=== PATIENT | male | born 1960 | race Caucasian/White ===

== ENCOUNTER → 2019-06-28 13:20 | Outpatient (BNVA) | payer MEDICARE, MEDICAID, SELFPAY | PROVIDERS: PCP Nurse Practitioner Family; Visit Provider Anesthesiology | DX: G89.29 Other chronic pain (principal); M54.5 Low back pain; M25.551 Pain in right hip; M25.552 Pain in left hip; M25.511 Pain in right shoulder; M25.512 Pain in left shoulder; F17.210 Nicotine dependence, cigarettes, uncomplicated; Z79.891 Long term (current) use of opiate analgesic | CPT/HCPCS: 99214 ==

== ENCOUNTER → 2019-08-12 11:53 | Outpatient (BNVA) | payer MEDICARE, MEDICAID, SELFPAY | PROVIDERS: PCP Nurse Practitioner Family; Visit Provider Nurse Practitioner | DX: F33.2 Major depressive disorder, recurrent severe without psychotic features (principal); F45.0 Somatization disorder | CPT/HCPCS: 90832; 99213 ==

== ENCOUNTER → 2019-08-24 13:20 | Outpatient (BNVA) | payer MEDICARE, MEDICAID, SELFPAY | PROVIDERS: PCP Nurse Practitioner Family; Visit Provider Nurse Practitioner | DX: M54.5 Low back pain (principal); M54.2 Cervicalgia; F17.210 Nicotine dependence, cigarettes, uncomplicated; Z79.891 Long term (current) use of opiate analgesic; G43.711 Chronic migraine without aura, intractable, with status migrainosus | CPT/HCPCS: 99213; 99214 ==

== ENCOUNTER → 2019-11-15 07:41 | Outpatient (BNVA) | payer MEDICARE, MEDICAID, SELFPAY | PROVIDERS: PCP Nurse Practitioner Family; Visit Provider Nurse Practitioner | DX: F33.2 Major depressive disorder, recurrent severe without psychotic features (principal); F45.0 Somatization disorder | CPT/HCPCS: 99213 ==

== ENCOUNTER → 2019-12-14 14:15 | Outpatient (BNVA) | payer MEDICARE, MEDICAID, SELFPAY | PROVIDERS: PCP Nurse Practitioner Family; Visit Provider Anesthesiology | DX: G89.29 Other chronic pain (principal); M54.5 Low back pain; M25.551 Pain in right hip; M25.552 Pain in left hip; M54.2 Cervicalgia; M25.511 Pain in right shoulder; M25.512 Pain in left shoulder; F17.210 Nicotine dependence, cigarettes, uncomplicated; Z79.891 Long term (current) use of opiate analgesic; Z71.6 Tobacco abuse counseling | CPT/HCPCS: 99214 ==

== ENCOUNTER → 2020-02-08 09:20 | Outpatient (BNVA) | payer MEDICARE, MEDICAID, SELFPAY | PROVIDERS: PCP Nurse Practitioner Family; Visit Provider Nurse Practitioner | DX: F33.2 Major depressive disorder, recurrent severe without psychotic features (principal); F45.0 Somatization disorder | CPT/HCPCS: 99213 ==

== ENCOUNTER → 2020-02-29 13:00 | Outpatient (BNVA) | payer MEDICARE, MEDICAID, SELFPAY | PROVIDERS: PCP Nurse Practitioner Family; Visit Provider Anesthesiology | DX: G89.29 Other chronic pain (principal); M54.5 Low back pain; M54.2 Cervicalgia; F17.210 Nicotine dependence, cigarettes, uncomplicated; Z79.891 Long term (current) use of opiate analgesic | CPT/HCPCS: 99213; 99214 ==

== ENCOUNTER 2020-03-29 20:00 | Outpatient (CLI) | payer MEDICARE, MEDICAID, SELFPAY | END 2020-03-29 20:01 | disposition home or self-care (01) | LOC: SLEEP 03-30 09:28 | PROVIDERS: PCP Nurse Practitioner Family; Visit Provider Specialist | DX: G47.33 Obstructive sleep apnea (adult) (pediatric) (principal) | CPT/HCPCS: 95811 ==

== ENCOUNTER 2020-04-18 14:59 | Outpatient (CLI) | payer MEDICARE, MEDICAID, SELFPAY ==
--- NOTE | 2020-04-18 15:35 | US_ITS ---
WS: [id number] ULTRASOUND SOFT TISSUES bilateral neck ultrasound. HISTORY: SOFT TISSUE MASS COMPARISON: None available. TECHNIQUE: 2-D and color Doppler imaging is submitted. Ultrasound to the neck as directed by the patient to the palpable areas. There are benign-appearing l ymph nodes without increased vascularity. Fatty hilum is present and these lymph nodes are not enlarg ed. Vascularity is to the central hilum. Largest lymph node measures 1.3 cm in diameter. US/US soft tissue head neck [id number] IMPRESSION: Bilateral neck lymph nodes. Lymph nodes do not appear to be pathologic at this time.
== END 2020-04-18 15:00 | disposition home or self-care (01) ==
PROVIDERS: PCP Nurse Practitioner Family; Visit Provider Nurse Practitioner Family
DX: M79.9 Soft tissue disorder, unspecified (principal)
CPT/HCPCS: 76536

== ENCOUNTER → 2020-05-01 13:59 | Outpatient (BNVA) | payer MEDICARE, MEDICAID, SELFPAY | PROVIDERS: PCP Nurse Practitioner Family; Visit Provider Anesthesiology | DX: G89.29 Other chronic pain (principal); M54.5 Low back pain; M54.2 Cervicalgia; M25.511 Pain in right shoulder; M25.512 Pain in left shoulder; M25.551 Pain in right hip; M25.552 Pain in left hip; F17.210 Nicotine dependence, cigarettes, uncomplicated; Z79.891 Long term (current) use of opiate analgesic | CPT/HCPCS: 99214 ==

== ENCOUNTER → 2020-05-11 09:00 | Outpatient (BNVA) | payer MEDICARE, MEDICAID, SELFPAY | PROVIDERS: PCP Nurse Practitioner Family; Visit Provider Nurse Practitioner | DX: F33.2 Major depressive disorder, recurrent severe without psychotic features (principal); F45.0 Somatization disorder | CPT/HCPCS: 99213 ==

== ENCOUNTER → 2020-07-04 14:18 | Outpatient (BNVA) | payer MEDICARE, MEDICAID, SELFPAY | PROVIDERS: PCP Nurse Practitioner Family; Visit Provider Anesthesiology | DX: G89.29 Other chronic pain (principal); M54.5 Low back pain; M54.2 Cervicalgia; M79.604 Pain in right leg; M79.605 Pain in left leg; M25.511 Pain in right shoulder; M25.512 Pain in left shoulder; F17.210 Nicotine dependence, cigarettes, uncomplicated; Z79.891 Long term (current) use of opiate analgesic | CPT/HCPCS: 99213 ==

== ENCOUNTER 2020-07-21 06:12 | Emergency (ER) | payer MEDICARE, MEDICAID, SELFPAY ==
[2020-07-21 06:12] VITALS: BP 116/69; PULSE 74; RESP 16; TEMP 36.6; O2SAT 98; BMI 21.7
--- NOTE | 2020-07-21 06:37 | ED_ITS ---
HPI - Nausea/Vomiting/Diarrhea General: Chief complaint: Nausea/Vomiting/Diarrhea Stated complaint: nausea x 1 month, generalized weakness Time Seen by Provider: 07/21/20 06:16 History of Present Illness: HPI Narrative: The patient is a 59-year-old male with past medical history chronic back pain who comes to the ER complaining of 1 month of nausea and epigastric pain. He says over the past 2 weeks he has been able to eat less and less and not even sweet things taste good to him. He says he eats and then vomits and is feeling progressively weaker. He denies diarrhea and says he suffers from constipation when he does go. He is a chronic back pain patient on opiates. He says he has not drink anything in a day and is nauseous and is not thirsty. Then asks for juice immediately after. MD elicited complaint: nausea and vomiting Associated nausea: Yes Associated abdominal pain: Yes Location of pain: Epigastric Severity: moderate Quality: cramping Exacerbating factors: none Relieving factors: none Associated symtoms: Reports nausea; Denies anxiety, change in vision, chest pain, dizziness, fatigue, headache(s) or palpitations Review of Systems General: Reports: 10 or more systems reviewed and unremarkable except in HPI and below Const: Denies: fatigue Eyes: Denies: change in vision, blurry vision or eye redness ENMT: Denies: throat pain, swelling of lips/tongue, ear or mastoid pain or nasal congestion Card: Denies: chest pain, palpitations, irregular heart rhythm, edema, dyspnea on exertion or orthopnea Resp: Denies: dyspnea, productive cough or non-productive cough GI: Reports: abdominal pain, nausea and vomiting : Denies: flank pain, urinary frequency or urinary urgency Musc: Denies: neck pain, back pain, extremity pain, joint pain, joint redness, limited range of motion or muscle weakness Skin/Breast: Denies: rash, pruritus, erythema, skin pain or skin tenderness Neuro: Denies: headache(s), numbness in extremities, weakness in extremities, sensory changes, difficulty walking, dizziness, confusion or Slurred speech present Psych: Denies: anxiety or depression Endo: Denies: polyuria All/Imm: Denies: urticaria, throat swelling or tongue swelling PFSH ED PFSH: Medical History (Updated 07/21/20 @ 10:59 by Kun Szymanski MD) Back pain, lumbosacral Bilateral hip pain Bilateral shoulder pain Chronic neck pain Current every day smoker Encounter for long-term opiate analgesic use Major depressive disorder, recurrent severe without psychotic features Opioid contract exists Somatization disorder Surgical History H/O hemorrhoidectomy Family History Other CAD (coronary artery disease) Cancer Dementia Stroke Social History Smoking and tobacco status: heavy tobacco smoker cigarettes Alcohol intake: never History of recent travel: No Physical Exam Const: COMMON NORMALS: no acute distress, average body habitus, patient oriented x3, no limitations, healthy appearing, alert and well nourished GENERAL APPEARANCE: cooperative, comfortable, well kempt and well developed ORIENTATION/CONSCIOUSNESS: Yes awake, Yes oriented to person, Yes oriented to place and Yes oriented to time HENMT: COMMON NORMALS: normocephalic, external ears normal and Normal external nose present HEAD & SCALP: normal to inspection and normocephalic NOSE: Normal external nose present EXTERNAL EAR: Yes external ears normal MOUTH: Normal oral and palatal mucosa present THROAT: posterior oropharynx normal Eye: COMMON NORMALS: Equal, round and reactive pupils present and EOMs intact bilaterally GENERAL EYE: appearance normal, both eyes and all related structures PUPIL: Yes Equal, round and reactive pupils present Neck/C-Spine: COMMON NORMALS: full ROM, no lymphadenopathy, no meningeal signs and no JVD GENERAL: Yes normal visual inspection Lymph: LYMPHATIC: no lymphadenopathy noted Chest: COMMONS NORMALS: normal inspection of the chest and normal palpation of entire chest wall Resp: COMMON NORMALS: normal respiratory effort, No retractions, No use of accessory muscles, clear to auscultation bilaterally and percussion normal EFFORT & INSPECTION: Yes able to speak in complete sentences AUSCULTATION: clear to auscultation bilaterally PERCUSSION: percussion normal Cardio: COMMON NORMALS: no JVD, regular rate, regular rhythm, S1 normal heart sound present, S2 normal heart sound present and Peripheral pulses 2+ throughout RATE: regular rate RHYTHM: regular rhythm HEART SOUNDS: S1 normal heart sound present and S2 normal heart sound present PERIPHERAL PULSES: Peripheral pulses 2+ throughout GI: COMMON NORMALS: Normal to inspection, nondistended, normoactive bowel sounds present, Soft to palpation, non-tender and no masses INSPECTION: Yes normal to inspection PALPATION: Yes Soft to palpation : COMMON NORMALS: Yes no CVA tenderness BLADDER/KIDNEY EXAM: Yes no CVA tenderness Back/Pelvis: COMMON NORMALS: no CVA tenderness, thoracic and lumbar spine normal to inspection, no thoracic nor lumbar tenderness and thoraco-lumbar ROM normal Extremity: COMMON NORMALS: normal to inspection, full ROM, capillary refill normal, no joint enlargement and no pedal edema GENERAL: Yes normal exam except as noted Neuro: COMMON NORMALS: patient oriented x3, CN's II-XII intact bilaterally, moves all extremities, no focal motor deficits, no sensory deficits noted and gait normal SENSORIUM/ORIENTATION: Yes alert, Yes oriented to person, Yes oriented to place and Yes oriented to time MENINGEAL SIGNS: Yes no meningeal signs Psych: COMMON NORMALS: mental status grossly normal, Normal thought process present, cooperative, normal affect and speech normal APPEARANCE: Yes well kempt ATTITUDE: Yes calm SPEECH: Yes normal speech THOUGHT PROCESS: Normal thought process present Skin: COMMON NORMALS: no rashes or lesions noted GENERAL SKIN EXAM: no rashes or lesions noted Course Vital Signs: Vital signs: Vital Signs Temperature 97.9 F 07/21/20 06:12 Pulse Rate 80 07/21/20 09:01 Respiratory Rate 16 07/21/20 06:48 Blood Pressure 112/65 07/21/20 09:01 Pulse Oximetry 97 07/21/20 09:01 MDM - Nausea/Vomiting/Diarrhea MDM Narrative: Medical decision making narrative: The patient had elevated liver enzymes and a CT was performed which showed incidentally metastatic lesions to the liver. This is a new diagnosis today. Primary cancer not seen in the imaging. Placed case management referral for interventional radiology for biopsy of liver metastases, oncology, and recommended he follow-up with his primary care physician next week to direct care. He understands and is aware that he likely has cancer and early diagnosis and treatment lead to a better prognosis and longer life span and quality of life. He was given fluids and Zofran and has not vomited during his stay. He is also tolerating oral fluids well. He is stable for discharge. Return to the ER with worsening symptoms Lab Data: Labs: Lab Results 07/21/20 07/21/20 07/21/20 Range/Units 06:19 06:19 06:19 WBC 10.0 (4.0-10.0) 10^3/ uL RBC 3.27 L (4.1-5.3) 10^6/u L Hgb 10.6 L (11.7-16.6) g/dL Hct 32.2 L (42.0-52.0) % MCV 98.5 H (80-94) fL MCH 32.4 (28.0-34.0) pg MCHC 32.9 (30.0-36.0) g/dL RDW 15.1 (12.1-15.1) % Plt Count 431 H (130-400) 10^3/c mm MPV 10.1 (7.4-10.4) fL Neut % (Auto) 75.6 % Lymph % (Auto) 15.5 % Maverick % (Auto) 8.1 % Eos % (Auto) 0.1 % Baso % (Auto) 0.3 % Neut # (Auto) 7.56 (1.8-7.7) 10^3/u L Lymph # (Auto) 1.6 (0.8-4.8) 10^3/u L Maverick # (Auto) 0.8 (0.2-0.9) 10^3/u L Eos # (Auto) 0.0 (0.0-0.8) 10^3/u L Baso # (Auto) 0.0 (0.0-0.1) 10^3/u L Nucleated RBC % (a uto) 0 % Nucleated RBCs # 0.0 /100WBC Sodium 135 L (136-145) mmol/L Potassium 4.3 (3.5-5.1) mmol/L Chloride 99 (98-107) mmol/L Carbon Dioxide 24 (22-29) mmol/L Anion Gap 16.3 (5-19) BUN 6 L (8-23) mg/dL Creatinine 0.9 (0.7-1.2) mg/dL GFR Calculation 86.1 L (90-130) mL/min Glucose 103 (65-115) mg/dL Calculated Osmolal ity 278 L (285-295) mOsm/k g Lactate 2.3 H (0.5-2.2) mmol/L Calcium 8.6 (8.5-10.5) mg/dL Total Bilirubin 0.7 (0.15-1.2) mg/dL AST 97 H (0-40) U/L ALT 61 H (0-41) U/L Alkaline Phosphata se 511 H (40-130) IU/L Total Protein 6.4 L (6.6-8.7) g/dL Albumin 3.2 L (3.5-5.2) g/dL Globulin 3.2 (1.3-4.6) g/dL Lipase 33 (13-60) U/L Urine Color (Yellow) Urine Appearance (CLEAR) Urine pH (5-7) Ur Specific Gravit y (1.005-1.030) Urine Protein (Negative) Urine Glucose (UA) (Normal) Urine Ketones (Negative) Urine Blood (Negative) Urine Nitrate (Negative) Urine Bilirubin (Negative) Urine Urobilinogen (Negative) mg/dL Ur Leukocyte Yvette ase (Negative) Urine RBC (0-2) /hpf Urine WBC (0-5) /hpf Ur Squamous Epith Cells (0-5) /hpf Amorphous Sediment Urine Bacteria (NONE) /hpf 07/21/20 Range/Units 06:30 WBC (4.0-10.0) 10^3/ uL RBC (4.1-5.3) 10^6/u L Hgb (11.7-16.6) g/dL Hct (42.0-52.0) % MCV (80-94) fL MCH (28.0-34.0) pg MCHC (30.0-36.0) g/dL RDW (12.1-15.1) % Plt Count (130-400) 10^3/c mm MPV (7.4-10.4) fL Neut % (Auto) % Lymph % (Auto) % Maverick % (Auto) % Eos % (Auto) % Baso % (Auto) % Neut # (Auto) (1.8-7.7) 10^3/u L Lymph # (Auto) (0.8-4.8) 10^3/u L Maverick # (Auto) (0.2-0.9) 10^3/u L Eos # (Auto) (0.0-0.8) 10^3/u L Baso # (Auto) (0.0-0.1) 10^3/u L Nucleated RBC % (a uto) % Nucleated RBCs # /100WBC Sodium (136-145) mmol/L Potassium (3.5-5.1) mmol/L Chloride (98-107) mmol/L Carbon Dioxide (22-29) mmol/L Anion Gap (5-19) BUN (8-23) mg/dL Creatinine (0.7-1.2) mg/dL GFR Calculation (90-130) mL/min Glucose (65-115) mg/dL Calculated Osmolal ity (285-295) mOsm/k g Lactate (0.5-2.2) mmol/L Calcium (8.5-10.5) mg/dL Total Bilirubin (0.15-1.2) mg/dL AST (0-40) U/L ALT (0-41) U/L Alkaline Phosphata se (40-130) IU/L Total Protein (6.6-8.7) g/dL Albumin (3.5-5.2) g/dL Globulin (1.3-4.6) g/dL Lipase (13-60) U/L Urine Color Yellow (Yellow) Urine Appearance Clear (CLEAR) Urine pH 7 (5-7) Ur Specific Gravit y 1.005 (1.005-1.030) Urine Protein Neg (Negative) Urine Glucose (UA) Norm (Normal) Urine Ketones Negative (Negative) Urine Blood Neg (Negative) Urine Nitrate Negative (Negative) Urine Bilirubin Neg (Negative) Urine Urobilinogen 1 H (Negative) mg/dL Ur Leukocyte Yvette ase Trace H (Negative) Urine RBC None (0-2) /hpf Urine WBC 0-4 H (0-5) /hpf Ur Squamous Epith Cells None (0-5) /hpf Amorphous Sediment Not Reportable Urine Bacteria Trace (NONE) /hpf Discharge Plan Discharge Patient Disposition: Home Clinical Impression: Cancer, metastatic to liver Condition: Stable Prescriptions: No Action ketoconazole 200 mg tablet 200 mg PO DAILY RF: 0 duloxetine [Cymbalta] 60 mg capsule,delayed release(DR/EC) 120 mg PO DAILY Qty: 60 RF: 2 diazepam [Valium] 2 mg tablet 2 mg PO DAILY PRN (Reason: anxiety) Qty: 30 RF: 2 multivitamin [Daily Multi-Vitamin] Tablet 1 tab PO QDAY RF: 0 pravastatin 40 mg tablet 40 mg PO QDAY RF: 0 tamsulosin [Flomax] 0.4 mg capsule 0.4 mg PO QDAY RF: 0 hydrocodone-acetaminophen 7.5-325 mg tablet 1 tab PO .5 times a day PRN (Reason: pain) 30 Days Qty: 150 RF: 0 hydrocodone-acetaminophen 7.5-325 mg tablet 1 tab PO .5 times a day PRN (Reason: pain) 30 Days Qty: 150 RF: 0 baclofen 20 mg tablet 20 mg PO QID PRN (Reason: spasms) 30 Days Qty: 120 RF: 1 zonisamide [Zonegran] 100 mg capsule 400 mg PO .AT BEDTIME Qty: 120 RF: 4 Discharge Orders: Discharge ED (Routine); Ordered 07/21/20 Ordered By: Kun Szymanski Referrals: Jeffrey Gibbs NP [Primary Care Provider] - Discharge Diet: Advance as tolerated Discharge Activity: Resume usual activity Patient Instructions: Liver Cancer (ED), Opioid Safety Activity Restrictions/Additional Instructions: You came in for nausea vomiting and weakness. We have given you fluids and Zofran and you are not vomiting and tolerating oral fluids well. Incidentally we have found metastatic lesions in your liver which likely indicate you have a bowel cancer that has spread to the liver but we cannot see the primary lesion in your bowel. I have placed a case management referral to help you get an appointment with interventional radiologist who will do a biopsy next week and also set up care with an oncologist after that. Return to the ER with worsening symptoms. Set up an appointment next week with your primary care physician to discuss this new diagnosis to help manage your care. Coding Level of Care Code ED Firestopper Installer for Xuan Fwd Exam Comprehensive
[2020-07-21 06:41] LABS: Basophils % 0.3 %; Eosinophils % 0.1 %; Hematocrit 32.2 % (42.0-52.0); Hemoglobin 10.6 g/dL (11.7-16.6); Lymphocytes # 1.6 10^3/uL (0.8-4.8); Lymphocytes % 15.5 %; Mean Corpuscular HGB Conc 32.9 g/dL (30.0-36.0); Mean Corpuscular Hemoglobin 32.4 pg (28.0-34.0); Mean Corpuscular Volume 98.5 fL (80-94); Mean Platelet Volume 10.1 fL (7.4-10.4); Monocytes # 0.8 10^3/uL (0.2-0.9); Monocytes % 8.1 %; Neutrophils # 7.56 10^3/uL (1.8-7.7); Neutrophils % 75.6 %; Nucleated Red Blood Cells % 0 %; Platelet Count 431 10^3/cmm (130-400); Red Blood Count 3.27 10^6/uL (4.1-5.3); Red Cell Distribution Width 15.1 % (12.1-15.1)
[2020-07-21] MEDS: sodium chloride 0.9% 1,000 ML 999 ML IV (06:45)
[2020-07-21] MEDS: ondansetron 2 mg/ML SDV 2 mL 4 MG IVP (06:46)
[2020-07-21 06:48] VITALS: BP 127/69; PULSE 82; RESP 16; O2SAT 99
--- NOTE | 2020-07-21 06:51 | CTR_ITS ---
PROCEDURE INFORMATION: Exam: CT Abdomen And Pelvis Without Contrast Exam date and time: 07/21/2020 6:54 AM Age: 59 years old Clinical indication: Nausea; Additional info: Abdominal pain TECHNIQUE: Imaging protocol: Computed tomography of the abdomen and pelvis without contrast. Radiation optimization: All CT scans at this facility use at least one of these dose optimization techniques: automated exposure control; mA and/or kV adjustment per patient size (includes targeted exams where dose is matched to clinical indication); or iterative reconstruction. COMPARISON: CR Hips Bilat 3-4v wwo Pelv [id number] 09/27/2015 5:04 PM RADIATION DOSE METRICS: Total DLP (mGy-cm): 454.82 FINDINGS: Lungs: There is a 0.5 cm nodule in the posterior left lower lobe there is a tiny calcified granuloma in the left lung base. There is a patchy airspace opacity along the lateral aspect of the right lung base. Liver: There is multiple hypodense lesions scattered throughout the liver, the largest measuring 12 cm in the hepatic dome. Gallbladder and bile ducts: Normal. No calcified stones. No ductal dilation. Pancreas: Normal. No ductal dilation. Spleen: There is tiny calcific densities scattered throughout the spleen, likely sequela of previous granulomatous disease. The spleen is otherwise unremarkable. Adrenal glands: Normal. No mass. Kidneys and ureters: Normal. No hydronephrosis. Stomach and bowel: Unremarkable. No obstruction. No mucosal thickening. Appendix: No evidence of appendicitis. Intraperitoneal space: Unremarkable. No free air. No significant fluid collection. Vasculature: [id number]-im-[id number] diffuse atherosclerotic disease is present. Lymph nodes: Unremarkable. No enlarged lymph nodes. Urinary bladder: Unremarkable as visualized. Reproductive: The prostate is enlarged. Bones/joints: Mild S-shaped curvature of the spine is present. Soft tissues: Unremarkable. CT/CT abdomen pelvis wo con [id number] IMPRESSION: 1. Multiple incompletely characterized hepatic lesions, concerning for malignancy. Further evaluation with contrast enhanced MRI is recommended. 2. Left lower lobe pulmonary nodule measuring 0.5 cm. For patients at low risk (minimal or absent history of smoking and of other known risk factors), no routine follow-up is indicated. For patients at high risk (history of smoking or of other known risk factors), consider optional CT Chest at 12 months. (Reference: Mitch) REFERENCES: Mitch Boyer et al. Guidelines for Management of Incidental Pulmonary Nodules Detected on CT Images: From the Fleischner Society 2017. Radiology. 2017;284(1):228-243. Radiation Dose CTDIVOL = (mGy): DLP = 454.82 (mGy-cm)
[2020-07-21 07:02] LABS: Lactate (Lactic Acid level) 2.3 mmol/L (0.5-2.2)
[2020-07-21 07:03] LABS: Alanine Aminotransferase 61 U/L (0-41); Albumin Level 3.2 g/dL (3.5-5.2); Alkaline Phosphatase 511 IU/L (40-130); Anion Gap 16.3 (5-19); Aspartate Amino Transferase 97 U/L (0-40); Blood Urea Nitrogen 6 mg/dL (8-23); Calcium 8.6 mg/dL (8.5-10.5); Carbon Dioxide 24 mmol/L (22-29); Chloride 99 mmol/L (98-107); Globulin 3.2 g/dL (1.3-4.6); Glomerular Filtration Rate 86.1 mL/min (90-130); Glucose 103 mg/dL (65-115); Lipase 33 U/L (13-60); Osmolality Calculated 278 mOsm/kg (285-295); Potassium 4.3 mmol/L (3.5-5.1); Sodium 135 mmol/L (136-145); Total Bilirubin 0.7 mg/dL (0.15-1.2); Total Protein 6.4 g/dL (6.6-8.7)
[2020-07-21 08:23] LABS: Bilirubin Urine Neg (Negative); Blood Urine Neg (Negative); Glucose Urine UA Norm (Normal); Ketones Urine Negative (Negative); Nitrate Urine Negative (Negative); Protein Urine Neg (Negative); Specific Gravity, Urine 1.005 (1.005-1.030); Urine Appearance Clear (CLEAR); Urine Color Yellow (Yellow); pH Urine 7 (5-7)
[2020-07-21 08:24] LABS: Add Urine Culture? No; Add Urine Microscopic? YES; Bacteria Urine TRACE /hpf; Leukocyte Esterase Urine Trace (Negative); Urobilinogen Urine 1 mg/dL (Negative); WBC Urine 0-4 /hpf (0-5)
[2020-07-21 09:01] VITALS: BP 112/65; PULSE 80; O2SAT 97
--- NOTE | 2020-07-21 11:19 | PC.NURSE ---
pt ambulated without assistance
--- NOTE | 2020-07-21 11:30 | PC.NURSE ---
when nurse in room to perform discharge pt he replied, I'm refusing my discharge and you have to keep me because I cannot take care of myself at home at all . ER physician notified.
[2020-07-21 17:22] LABS: Hepatitis A Antibody IgM Non-Reactive (Nonreactive); Hepatitis B Core IgM Non-Reactive (Nonreactive); Hepatitis B Surface Antigen Non-Reactive (Nonreactive); Hepatitis C Virus Antibody Non-Reactive (Nonreactive)
--- NOTE | 2020-07-23 14:39 | DCPLANNER ---
Addendum entered by Jaclyn Farooq 07/24/20 12:51: merchandising manager called patient again today, spoke with patient, dependency case manager explained to patient that he would need to go to [place] to see an interventional radiologist to have the biopsy done. merchandising manager asked patient which facility that he would want case manage to send the referral to [facility]. Patient stated that he wanted to speak with someone at the [facility]. merchandising manager called the [facility], spoke with Ana Paula, and told her that patient would like for someone to call him. Ana Paula stated that she would call him. Ana Paula from the [facility] called dependency case manager, she stated that she spoke with patient, and he stated that he would need to speak with some of his family and would call dependency case manager back when he knew which facility that he wanted to use. Original Note: merchandising manager had message to refer patient to interventional radiology for biopsy for liver mets. merchandising manager called [phone] and [phone], unable to speak with patient on either number, dependency case manager left a voicemail for patient to return immigration case worker phone on both numbers. merchandising manager also had message to refer patient to oncology after the biopsy has been completed. merchandising manager called the branch operations coordinator, [facility]. merchandising manager gave clinic patients information, so after the biopsy has been completed a follow up appointment will be scheduled.
== END 2020-07-21 13:28 | disposition home or self-care (01) ==
PROVIDERS: Emergency Provider Family Medicine; PCP Nurse Practitioner Family
DX: C78.7 Secondary malignant neoplasm of liver and intrahepatic bile duct (principal); F17.210 Nicotine dependence, cigarettes, uncomplicated
CPT/HCPCS: 74176; 80053; 80074; 81001; 83605; 83690; 85025; 96361; 96374; 99283; J2405; J7030

== ENCOUNTER → 2020-08-03 11:09 | Day surgery (SDC) | payer MEDICARE, MEDICAID, SELFPAY ==
[2020-08-03 12:22] VITALS: BP 129/72; PULSE 70; RESP 18; TEMP 36.8; O2SAT 97
[2020-08-03 12:25] VITALS: BMI 20.4
== END ==
PROVIDERS: PCP Nurse Practitioner Family; Visit Provider Nurse Practitioner Family
DX: R32 Unspecified urinary incontinence (principal)
CPT/HCPCS: 51702

== ENCOUNTER 2020-08-13 10:18 | Inpatient (IN) | payer MEDICARE, MEDICAID, SELFPAY ==
[2020-08-13] VITALS (7 sets, daily range): BP systolic 70–112; BP diastolic 47–80; PULSE 75–96; RESP 14–18; TEMP 36.3; O2SAT 82–100; BMI 19.1
--- NOTE | 2020-08-13 10:34 | ECG_ITS ---
[facility] Test Date: 2020-08-13 Pat Name: Memo Olson Department: Room: Gender: Male Internal Consultant: : 1960 Requested By: Yunier Powell Order Number: [id number] Ibis MD: Joss Musa M.D. Measurements Intervals [place] Rate: 86 P: 56 ID: [id number] QRS: 90 QRSD: 102 T: 47 QT: 385 QTc: 462 Interpretive Statements SINUS RHYTHM WITH FREQUENT VENTRICULAR PREMATURE COMPLEXES ABNORMAL RHYTHM ECG No previous ECG available for comparison Electronically Signed On 08-13-2020 23:56:12 CDT by Joss Musa M.D. [email or web address]
--- NOTE | 2020-08-13 10:34 | XR_ITS ---
WS: [id number] XR chest 1V portable [id number] REASON FOR EXAM: dyspnea/cough FINDINGS: No previous chest x-ray for comparison. There are interstitial changes of unknown chronicity in the right upper medial lung field and the lef t lower lung field. Additional changes are suspicion. In the left upper lung field as well. The heart and mediastinum are within normal limits. The bony thorax is intact. XR/XR chest 1V portable [id number] IMPRESSION: Interstitial infiltrative changes of unknown chronicity. Acute or subacute pneu monitis not readily excluded.
--- NOTE | 2020-08-13 10:41 | W.ED.WEAKNES ---
HPI - Weakness General: Chief complaint: Weakness Stated complaint: WEAKNESS, CANCER Time Seen by Provider: 08/13/20 10:20 History of Present Illness: HPI Narrative: 59-year-old male presents emergency room complaining of generalized weakness poor appetite he states he is dehydrated. He was seen here about 3 to 4 weeks ago he had some questionable liver lesions at that time. In the interim with the last 2 weeks had a Mora placed healthy was placed because he was incontinent at times. He does see neurology for spinal canal stenosis.He is not having a lot of leg pain he is not having any fecal incontinence. He has not had any evaluation of the lesions in his liver yet the remainder of his CT abdomen was listed as unremarkable extent of the dental finding of a pulmonary nodule that does need follow-up. He usually walks with a walker at home and receives home health. Denies chest pain abdominal pain or shortness of breath has not had any diarrhea no hematemesis or coffee-ground emesis he did make the comment that he had prostate problems in the past with a PSA as high as 12. Complaint: generalized weakness Onset (ago): week(s) Duration: constant Location: generalized Relieving factors: none Exacerbating factors: none Associated symptoms: Reports decreased appetite, nausea and short of breath; Denies chest pain, chills, confusion, melena, diaphoresis, dysuria, easy bruising, fever(s), headache(s), myalgias, rash, syncope or vomiting Review of Systems Const: Denies: fever(s), chills or diaphoresis ENMT: Denies: throat pain, ear or mastoid pain, nasal discharge or nasal congestion Card: Denies: chest pain or syncope Resp: Denies: dyspnea, productive cough or non-productive cough GI: Reports: nausea; Denies: vomiting or melena : Denies: dysuria Skin/Breast: Denies: rash or pruritus Neuro: Denies: headache(s) or confusion Kee/Lymph: Denies: easy bruising [facility] ED PFS: Medical History (Updated 08/13/20 @ 15:49 by Jesus Bishop MD) Back pain, lumbosacral Bilateral hip pain Bilateral shoulder pain Chronic neck pain Current every day smoker Encounter for long-term opiate analgesic use Major depressive disorder, recurrent severe without psychotic features Opioid contract exists Somatization disorder Surgical History H/O hemorrhoidectomy Family History Other CAD (coronary artery disease) Cancer Dementia Stroke Social History Smoking and tobacco status: heavy tobacco smoker cigarettes Alcohol intake: never History of recent travel: No Physical Exam Const: COMMON NORMALS: no acute distress GENERAL APPEARANCE: cooperative, comfortable and frail appearing NUTRITIONAL APPEARANCE: cachectic HENMT: COMMON NORMALS: normocephalic HEAD & SCALP: normocephalic OTHER: Temporal wasting with dry mucous membranes of the mouth. Neck/C-Spine: COMMON NORMALS: no JVD Resp: COMMON NORMALS: normal respiratory effort, No retractions and No use of accessory muscles AUSCULTATION: crackles and wheezes Cardio: COMMON NORMALS: no JVD, regular rate, regular rhythm and No murmurs present (Cardio) RATE: regular rate RHYTHM: regular rhythm GI: COMMON NORMALS: Soft to palpation and No hepatosplenomegaly present AUSCULTATION: Yes normoactive bowel sounds PALPATION: Yes Soft to palpation, No Tenderness to palpation present (GI), No Guarding due to palpation present (GI) and Yes No hepatosplenomegaly present Extremity: COMMON NORMALS: normal to inspection, capillary refill normal, no clubbing, cyanosis or edema, no calf tenderness and no pedal edema Skin: COMMON NORMALS: no rashes or lesions noted GENERAL SKIN EXAM: no rashes or lesions noted Course Vital Signs: Vital signs: Vital Signs Temperature 97.3 F L 08/14/20 07:06 Pulse Rate 85 08/14/20 07:06 Respiratory Rate 16 08/14/20 07:06 Blood Pressure 102/68 08/14/20 07:06 Pulse Oximetry 97 08/14/20 07:06 MDM - Weakness MDM Narrative: Medical decision making narrative: Reviewed findings with the patient. CT shows extensive involvement that is most likely metastatic. Including in the head there is a small area around the pituitary infundibulum. Is also apparent involvement in the liver bone. There is pulmonary emboli and portal vein thrombocysts. Discussed with the patient how he like to proceed he is unsure he wants to talk to some family. Initially for now I recommend that we go ahead and heparinize him until he has made a decision. In the immediate present circumstances who requires treatment for pulmonary emboli in the portal vein thrombosis. Once he is improved from that we can make a decision about biopsy and progression of treatment if he wishes to do so. We also discussed supportive care. He has had significant weight loss on exam his temporal wasting and he has significant progression of his disease, supportive care would be an option to consider. He will discuss with his family. A sister did call back to discuss his case with week she is listed on his contacts in his chart. I was tied up with other emergent cases in the emergency room was unable to contact her back we did forward her confirmation to Dr. Bishop who will be caring for the patient on the inpatient side. Lab Data: Labs: Lab Results 08/13/20 08/13/20 08/13/20 Range/Units 10:06 10:06 10:06 WBC 11.5 H (4.0-10.0) 10^3/ uL RBC 3.55 L (4.1-5.3) 10^6/u L Hgb 11.7 (11.7-16.6) g/dL Hct 38.0 L (42.0-52.0) % MCV 107.0 H (80-94) fL MCH 33.0 (28.0-34.0) pg MCHC 30.8 (30.0-36.0) g/dL RDW 19.3 H (12.1-15.1) % Plt Count 240 (130-400) 10^3/c mm MPV 11.4 H (7.4-10.4) fL Neut % (Auto) 79.1 % Lymph % (Auto) 11.9 % [place] % (Auto) 6.9 % Eos % (Auto) 0.0 % Baso % (Auto) 0.5 % Neut # (Auto) 9.13 H (1.8-7.7) 10^3/u L Lymph # (Auto) 1.4 (0.8-4.8) 10^3/u L [place] # (Auto) 0.8 (0.2-0.9) 10^3/u L Eos # (Auto) 0.0 (0.0-0.8) 10^3/u L Baso # (Auto) 0.1 (0.0-0.1) 10^3/u L Nucleated RBC % (a uto) 0.2 % Nucleated RBCs # 0.0 /100WBC Sodium 133 L (136-145) mmol/L Potassium 4.6 (3.5-5.1) mmol/L Chloride 96 L (98-107) mmol/L Carbon Dioxide 26 (22-29) mmol/L Anion Gap 15.6 (5-19) BUN 12 (8-23) mg/dL Creatinine 0.8 (0.7-1.2) mg/dL GFR Calculation 98.6 (90-130) mL/min Glucose 103 (65-115) mg/dL Calculated Osmolal ity 276 L (285-295) mOsm/k g Lactic Acid (0.5-2.2) mmol/L Lactic Acid (Sepsi s) (0.5-2.2) mmol/L Calcium 10.3 (8.5-10.5) mg/dL Magnesium 1.8 (1.7-2.3) mg/dL Total Bilirubin 2.4 H (0.15-1.2) mg/dL AST 222 H (0-40) U/L ALT 75 H (0-41) U/L Alkaline Phosphata se 1190 H* (40-130) IU/L Ammonia (16-60) umol/L Creatine Kinase 39 (39-308) U/L Total Protein 5.9 L (6.6-8.7) g/dL Albumin 2.5 L (3.5-5.2) g/dL Globulin 3.4 (1.3-4.6) g/dL Lipase 141 H (13-60) U/L Procalcitonin 0.91 H (0-0.5) ng/mL Urine Color (Yellow) Urine Appearance (CLEAR) Urine pH (5-7) Ur Specific Gravit y (1.005-1.030) Urine Protein (Negative) Urine Glucose (UA) (Normal) Urine Ketones (Negative) Urine Blood (Negative) Urine Nitrate (Negative) Urine Bilirubin (Negative) Urine Urobilinogen (Negative) mg/dL Ur Leukocyte Yvette ase (Negative) SARS-CoV-2 Ag (Rap id) (Negative) 08/13/20 08/13/20 08/13/20 Range/Units 10:35 10:52 12:14 WBC (4.0-10.0) 10^3/ uL RBC (4.1-5.3) 10^6/u L Hgb (11.7-16.6) g/dL Hct (42.0-52.0) % MCV (80-94) fL MCH (28.0-34.0) pg MCHC (30.0-36.0) g/dL RDW (12.1-15.1) % Plt Count (130-400) 10^3/c mm MPV (7.4-10.4) fL Neut % (Auto) % Lymph % (Auto) % [place] % (Auto) % Eos % (Auto) % Baso % (Auto) % Neut # (Auto) (1.8-7.7) 10^3/u L Lymph # (Auto) (0.8-4.8) 10^3/u L [place] # (Auto) (0.2-0.9) 10^3/u L Eos # (Auto) (0.0-0.8) 10^3/u L Baso # (Auto) (0.0-0.1) 10^3/u L Nucleated RBC % (a uto) % Nucleated RBCs # /100WBC Sodium (136-145) mmol/L Potassium (3.5-5.1) mmol/L Chloride (98-107) mmol/L Carbon Dioxide (22-29) mmol/L Anion Gap (5-19) BUN (8-23) mg/dL Creatinine (0.7-1.2) mg/dL GFR Calculation (90-130) mL/min Glucose (65-115) mg/dL Calculated Osmolal ity (285-295) mOsm/k g Lactic Acid 2.4 H (0.5-2.2) mmol/L Lactic Acid (Sepsi s) (0.5-2.2) mmol/L Calcium (8.5-10.5) mg/dL Magnesium (1.7-2.3) mg/dL Total Bilirubin (0.15-1.2) mg/dL AST (0-40) U/L ALT (0-41) U/L Alkaline Phosphata se (40-130) IU/L Ammonia 40 (16-60) umol/L Creatine Kinase (39-308) U/L Total Protein (6.6-8.7) g/dL Albumin (3.5-5.2) g/dL Globulin (1.3-4.6) g/dL Lipase (13-60) U/L Procalcitonin (0-0.5) ng/mL Urine Color Yellow (Yellow) Urine Appearance Clear (CLEAR) Urine pH 6 (5-7) Ur Specific Gravit y 1.010 (1.005-1.030) Urine Protein Neg (Negative) Urine Glucose (UA) Norm (Normal) Urine Ketones Negative (Negative) Urine Blood Neg (Negative) Urine Nitrate Negative (Negative) Urine Bilirubin Neg (Negative) Urine Urobilinogen 1 H (Negative) mg/dL Ur Leukocyte Yvette ase Negative (Negative) SARS-CoV-2 Ag (Rap id) (Negative) 08/13/20 08/13/20 Range/Units 12:25 13:17 WBC (4.0-10.0) 10^3/ uL RBC (4.1-5.3) 10^6/u L Hgb (11.7-16.6) g/dL Hct (42.0-52.0) % MCV (80-94) fL MCH (28.0-34.0) pg MCHC (30.0-36.0) g/dL RDW (12.1-15.1) % Plt Count (130-400) 10^3/c mm MPV (7.4-10.4) fL Neut % (Auto) % Lymph % (Auto) % [place] % (Auto) % Eos % (Auto) % Baso % (Auto) % Neut # (Auto) (1.8-7.7) 10^3/u L Lymph # (Auto) (0.8-4.8) 10^3/u L [place] # (Auto) (0.2-0.9) 10^3/u L Eos # (Auto) (0.0-0.8) 10^3/u L Baso # (Auto) (0.0-0.1) 10^3/u L Nucleated RBC % (a uto) % Nucleated RBCs # /100WBC Sodium (136-145) mmol/L Potassium (3.5-5.1) mmol/L Chloride (98-107) mmol/L Carbon Dioxide (22-29) mmol/L Anion Gap (5-19) BUN (8-23) mg/dL Creatinine (0.7-1.2) mg/dL GFR Calculation (90-130) mL/min Glucose (65-115) mg/dL Calculated Osmolal ity (285-295) mOsm/k g Lactic Acid (0.5-2.2) mmol/L Lactic Acid (Sepsi s) 1.7 (0.5-2.2) mmol/L Calcium (8.5-10.5) mg/dL Magnesium (1.7-2.3) mg/dL Total Bilirubin (0.15-1.2) mg/dL AST (0-40) U/L ALT (0-41) U/L Alkaline Phosphata se (40-130) IU/L Ammonia (16-60) umol/L Creatine Kinase (39-308) U/L Total Protein (6.6-8.7) g/dL Albumin (3.5-5.2) g/dL Globulin (1.3-4.6) g/dL Lipase (13-60) U/L Procalcitonin (0-0.5) ng/mL Urine Color (Yellow) Urine Appearance (CLEAR) Urine pH (5-7) Ur Specific Gravit y (1.005-1.030) Urine Protein (Negative) Urine Glucose (UA) (Normal) Urine Ketones (Negative) Urine Blood (Negative) Urine Nitrate (Negative) Urine Bilirubin (Negative) Urine Urobilinogen (Negative) mg/dL Ur Leukocyte Yvette ase (Negative) SARS-CoV-2 Ag (Rap id) Negative (Negative) Discharge Plan Discharge Patient Disposition: Admitted As Inpatient Admit Provider: Jesus Bishop Clinical Impression: Lung cancer, primary, with metastasis from lung to other site, Pulmonary emboli, Portal vein thrombosis Condition: Stable Coding Level of Care Code ED Superintendent Mechanical for Chg Fwd Exam Comprehensive
[2020-08-13 10:47] LABS: Add Urine Microscopic? NO
[2020-08-13 10:52] LABS: Basophils # 0.1 10^3/uL (0.0-0.1); Basophils % 0.5 %; Hemoglobin 11.7 g/dL (11.7-16.6); Lymphocytes # 1.4 10^3/uL (0.8-4.8); Lymphocytes % 11.9 %; Mean Corpuscular HGB Conc 30.8 g/dL (30.0-36.0); Mean Platelet Volume 11.4 fL (7.4-10.4); Monocytes # 0.8 10^3/uL (0.2-0.9); Monocytes % 6.9 %; Neutrophils # 9.13 10^3/uL (1.8-7.7); Neutrophils % 79.1 %; Nucleated Red Blood Cells % 0.2 %; Platelet Count 240 10^3/cmm (130-400); Red Blood Count 3.55 10^6/uL (4.1-5.3); Red Cell Distribution Width 19.3 % (12.1-15.1); White Blood Count 11.5 10^3/uL (4.0-10.0)
[2020-08-13] MEDS: ondansetron 2 mg/ML SDV 2 mL 4 MG IVP ×2 (10:53→15:48)
[2020-08-13] MEDS: sodium chloride 0.9% 1,000 ML 999 ML IV (10:54)
[2020-08-13 11:05] LABS: Bilirubin Urine Neg (Negative); Blood Urine Neg (Negative); Glucose Urine UA Norm (Normal); Ketones Urine Negative (Negative); Leukocyte Esterase Urine Negative (Negative); Nitrate Urine Negative (Negative); Protein Urine Neg (Negative); Urine Appearance Clear (CLEAR); Urine Color Yellow (Yellow); Urobilinogen Urine 1 mg/dL (Negative); pH Urine 6 (5-7)
[2020-08-13 11:12] LABS: Alanine Aminotransferase 75 U/L (0-41); Albumin Level 2.5 g/dL (3.5-5.2); Alkaline Phosphatase 1190 IU/L (40-130); Anion Gap 15.6 (5-19); Aspartate Amino Transferase 222 U/L (0-40); Blood Urea Nitrogen 12 mg/dL (8-23); Calcium 10.3 mg/dL (8.5-10.5); Carbon Dioxide 26 mmol/L (22-29); Chloride 96 mmol/L (98-107); Creatine Phosphokinase 39 U/L (39-308); Globulin 3.4 g/dL (1.3-4.6); Glomerular Filtration Rate 98.6 mL/min (90-130); Glucose 103 mg/dL (65-115); Lipase 141 U/L (13-60); Magnesium 1.8 mg/dL (1.7-2.3); Osmolality Calculated 276 mOsm/kg (285-295); Potassium 4.6 mmol/L (3.5-5.1); Sodium 133 mmol/L (136-145); Total Bilirubin 2.4 mg/dL (0.15-1.2); Total Protein 5.9 g/dL (6.6-8.7)
[2020-08-13 11:15] LABS: Lactic Sepsis W/Reflex 2.4 mmol/L (0.5-2.2)
--- NOTE | 2020-08-13 11:36 | PC.NURSE ---
Rounded on pt d/t oxygen sats 82% on 2LNC. Pt noted to be resting with eyes closed, breathing easy and unlabored. Turned pt up to 5LNC with improvement of sats only to 85%. Woke pt up and instructed pt to take several deep breaths. After several minutes, pt up to 93% on 5LNC. Physician notified.
--- NOTE | 2020-08-13 12:06 | CT_ITS ---
WS: [id number] CTA CHEST AND ABDOMEN PELVIS TECHNIQUE: Contrast enhanced CTA of the chest and abdomen pelvis with coronal and sagittal reformatte d images and additional MIP Images. CLINICAL INFORMATION: hypoxia, liver lesions, elevated alk phos COMPARISON: July 21, 2020 and ultrasound from earlier today DLP: 1269.[address] scans at [facility] use at least one of these dose optimization techniques: automat ed exposure control; mA and/or kV adjustment per patient size (includes targeted exams where dose is matched to clinical indication); or iterative reconstruction. FINDINGS: Proximal main pulmonary arteries are normal. Acute filling defects in the right lower lobe pulmonary arteries consistent with pulmonary embolus. Additional filling defects in the left upper lobe consist ent with emboli. A few additional tiny defects in the left subsegmental lower lobe pulmonary arteries . Smaller filling defects in the right middle lobe pulmonary arteries consistent with embolus. Masslike right hilar lymphadenopathy with spiculated right hilar intraparenchymal lesion most consist ent with neoplasm. Right hilar mass measures 3.1 x 2.8 cm. Spiculated intraparenchymal lesion measure s 2.8 x 2.1 cm. Slightly enlarged AP window and peribronchial lymph nodes. Masslike subcarinal lympha denopathy. Normal caliber thoracic aorta. No axillary lymphadenopathy. Chronic emphysematous changes. Hazy nodular and groundglass infiltrates in the upper lobes bilaterally. Subsegmental atelectasis in the lung bases. Infiltrates may be infectious or inflammatory. No focal pneumonia pleural fluid. A f ew small subcentimeter nodules in the lower lobes bilaterally suspicious for metastatic disease. Mild thoracic kyphosis. A few lytic lesions in the thoracic spine suspicious for metastatic disease. This is most prominent at T6. Additional small lytic lesions at T1, T2, T7, T9, and T12. Hepatomegaly. Transient hepatic attenuation difference in the mid liver due to extensive portal vein SMV confluence thrombosis. This extends into the main portal vein and right and left portal veins. S plenic vein is patent. Liver metastasis better visualized on the concurrent ultrasound. Diffuse heter ogeneous liver enhancement. Small amount of perihepatic ascites. Fluid about the gallbladder likely due to liver disease. No visu alized calculi. Mild to moderate pelvic ascites. Diffuse thickening of the right colon extending to t he hepatic flexure suspicious for infectious inflammatory or ischemic colitis. Findings suspicious fo r ischemic colitis considering SMV portal vein thrombus. No pneumatosis. Normal caliber abdominal aorta.Aortic calcification. Prostate calcification. Mora catheter. Normal s igmoid colon. Distal transverse and descending colon are normal. A few shotty lymph nodes in the uppe r abdomen. A few enlarged ursula hepatis lymph nodes. Grade 1 anterolisthesis L5 on S1. No definite vi sualized lytic lesions in the lumbar spine. CT/CT angio chest w abd pel w con IMPRESSION: 1. Extensive right lower lobe acute pulmonary embolus described above. Smaller emboli within both lungs. Segmental and subsegmental pulmonary arteries. 2. Masslike right hilar lymphadenopathy with spiculated right hilar mass consi stent with neoplasm. 3. Masslike subcarinal lymphadenopathy. 4. A few subcentimeter pulmonary nodules in both lower lobes nonspecific but m etastasis not excluded. 5. Transient hepatic perfusion anomaly related to SMV/portal vein confluence t hrombosis. This extends into the proximal portal veins in both hepatic lobes. 6. Hepatic metastasis better visualized on the concurrent ultrasound 7. Diffuse thickening involving the right colon and hepatic flexure with indur ation suspicious for infectious, inflammatory, or ischemic colitis. No pneumato sis. Ischemic colitis is suspected considering SMV/portal vein thrombus 8. Small amount of perihepatic ascites. Mild to moderate ascites in the pelvis . 9. Lytic lesions in thoracic spine worse at T6 suspicious for metastatic disea se. Notified Yunier Miles DO at 08/13/2020 2:39 PM.
--- NOTE | 2020-08-13 12:35 | US_ITS ---
WS: [id number] ABDOMINAL ULTRASOUND LIMITED REASON FOR VISIT: elevated LFTs, T bili TECHNIQUE: Grayscale and Doppler ultrasound examination of the abdomen. FINDINGS: Pancreas: Not well seen but visualized portions appear normal. Normal Liver: Liver measures 18.9 cm in length. Liver is very inhomogeneous in echotexture. The previously i dentified vague hypodense area in the dome of the right lobe of the liver correlates with a vague are a of increased echogenicity in the same region of the liver. At least 2 focal lesions are seen within the liver which show a thin hypoechoic rim and intermediate central echogenicity. Gallbladder: Gallbladder wall is significantly thickened and there is pericholecystic fluid. These fi ndings were not present on CT scan of 07/21/2020. No gallbladder calculi are identified. The common bi le duct did not appear dilated. Right kidney: Right kidney measures 11.3 cm x 5.2 cm x 5.2 cm. Right kidney cortex measures 1.3 cm. N o mass, hydronephrosis or calculus identified. Free fluid as above. US/US gall bladder [id number] IMPRESSION: Findings suggesting inflammation or infarction of the gallbladder (a calculus c holecystitis). The liver is abnormal, the enhanced CT scan of the abdomen should provide a mor e definitive characterization and potential diagnoses. Neoplasm the liver would have to be considered. The relationship between the gallbladder abnormality an d the liver abnormality is not certain at this point. The CT may provide that i nformation.
--- NOTE | 2020-08-13 12:35 | P.HP_ITS ---
Providers/Chief Complaint Primary Care Provider: Jeffrey Gibbs NP Chief Complaint: WEAKNESS, CANCER History of Present Illness Memo Olson is a 59 year old male presented to the hospital with generalized malaise fatigue anorexia & weight loss. Patient is stating that he had an appointment on Thursday with radiology at [facility] for biopsies hepatic lesions. His symptoms got worse he decided to come to the hospital for further evaluation. He lives alone smokes few cigarettes a day never had any diagnosis of HIV hepatitis or any cancers never had any colonoscopies in the past. He struggling to live alone, he is not able to cook for himself and take care. He does not have any children, his brother and niece live in [place]. Niece is traveling to [place] today. He is denying chest pain or abdominal pain, endorsing constipation and concentrated urine color. Diagnostics in the ER revealed metastatic lesions in brain, lungs, liver and bones, colitis, portal vein thrombosis, bilateral PEs, acalculous cholecystitis, CBD no dilation worsening transaminases and bilirubin, his blood pressures running soft systolic blood pressure 99 mmHg, considering his extremely poor social dynamics and weakness do not think he would be a good candidate for chemotherapy, we discussed options of starting heparin antibiotics biopsy chemotherapeutic agents radiotherapy. He is contemplating and leaning towards comfort measures. He will make his final decision once his niece is here. I will go ahead and start ceftriaxone and metronidazole and keep him on normal saline and therapeutic dose of Lovenox, he was diagnosed with sleep apnea BiPAP settings 11 and 6 which I would use overnight. He does not want to pursue histopathological diagnosis biopsy or any chemotherapy at this point Hepatitis panel negative Covid antigen negative Review of Systems Const: Reports: chills, body aches, change in appetite, change in weight, fatigue, malaise and night sweats Eyes: Reports: eye discomfort and yellow eyes ENMT: Denies: throat pain Card: Denies: pre-syncope Resp: Reports: dyspnea GI: Reports: constipation : Denies: flank pain Musc: Reports: muscle cramps Skin/Breast: Denies: rash Neuro: Reports: difficulty walking Psych: Reports: depression and sleeping more Endo: Denies: polyuria Kee/Lymph: Denies: easy bruising All/Imm: Denies: urticaria Medications/Allergies Home Medications Medication Instructions Recorded Confirmed Last Taken Type multivitamin 1 tab PO DAILY 06/28/19 08/13/20 08/12/20 History pravastatin 40 mg tablet 40 mg PO DAILY 06/28/19 08/13/20 08/12/20 History tamsulosin 0.4 mg capsule 0.4 mg PO DAILY 06/28/19 08/13/20 08/12/20 History ketoconazole 200 mg tablet 200 mg PO DAILY 05/10/20 08/13/20 08/03/20 History diazepam 2 mg tablet 2 mg PO DAILY PRN #30 tab 05/13/20 08/13/20 08/02/20 Rx baclofen 20 mg tablet 20 mg PO QID PRN 30 Days #120 tab 07/04/20 08/13/20 08/03/20 Rx hydrocodone 7.5 mg-acetaminophen 1 tab PO .5 times a day PRN 30 07/04/20 08/13/20 08/13/20 Rx 325 mg tablet Days #150 tab Cymbalta 120 mg PO BEDTIME 08/13/20 08/13/20 08/12/20 History Zonegran 400 mg PO BEDTIME 08/13/20 08/13/20 08/12/20 History docusate sodium [Stool Softener] 50 mg PO BID 08/13/20 08/13/20 08/12/20 History Allergies Allergy/AdvReac Type Severity Reaction Status Date / Time Iodine and Iodide Containing Allergy hives Verified 07/04/20 14:31 Produc PFSH Acute PFSH: Medical History (Updated 08/13/20 @ 15:49 by Jesus Bishop MD) Back pain, lumbosacral Bilateral hip pain Bilateral shoulder pain Chronic neck pain Current every day smoker Encounter for long-term opiate analgesic use Major depressive disorder, recurrent severe without psychotic features Opioid contract exists Somatization disorder Surgical History H/O hemorrhoidectomy Family History Other CAD (coronary artery disease) Cancer Dementia Stroke Social History Smoking and tobacco status: heavy tobacco smoker cigarettes Alcohol intake: never History of recent travel: No Vitals/I&O/Wt Last Vital Signs Pulse 84 08/13/20 11:35 Resp 14 08/13/20 11:35 BP 90/65 08/13/20 11:35 Pulse Ox 93 08/13/20 11:35 Weight last 48 hrs Weight 65.771 kg Physical Exam Narrative: EXAM NARRATIVE: Middle-age male cachectic, malnourished, frail lethargic laying comfortable in his bed when I entered the room Saturating well on room air Scleral icterus S1, S2 no murmur appreciated no signs of heart failure clinically looks dry and dehydrated Abdomen soft mild tenderness on right upper quadrant palpation Lower extremity no edema gangrene or ulcer Mora catheter draining concentrated urine No neurological deficits He is awake alert oriented x3 GCS 15 No joint swelling or skin cellulitis changes Lethargic and drowsy Data : 08/13/20 10:06 08/13/20 10:06 Micro: Microbiology 08/13/20 10:52 Blood Culture - Preliminary Blood SPECIMEN COLLECTED A&P Assessment and plan (1) Lung cancer, primary, with metastasis from lung to other site: Status: Acute (2) Pulmonary emboli: Status: Acute (3) Portal vein thrombosis: Status: Acute (4) Severe obstructive sleep apnea: Status: Acute (5) Hypersomnia: Status: Acute (6) Chronic migraine without aura, intractable, with status migrainosus: Status: Acute (7) Metastatic cancer: Status: Acute (8) Colitis: Status: Acute (9) Acalculous cholecystitis: Status: Acute (10) Brain metastases: Status: Acute Additional A&P Information Multiple metastatic lesions Primary cancer has not been diagnosed he was scheduled for histopathological diagnosis with radiology on Thursday Brain, hepatic, pulmonary, colon, metastatic lesions evident on CT chest abdomen pelvis, CT head also revealed infundibular lesions Considering his smoking history this most likely is lung cancer with metastases His functional status is very poor, he lives alone his brother and niece lives in [place] Patient does not want to pursue histopathological diagnosis or chemotherapeutic options at this point he is leaning towards comfort measures however would like to make final decision once discussed with his family Portal vein thrombosis Started on therapeutic dose of Lovenox Bilateral PEs: On therapeutic Lovenox, soft blood pressure currently saturating well on 5 L nasal cannula Most likely cancer related hypercoagulable state Acalculous cholecystitis and colitis We will keep him on ceftriaxone and metronidazole with normal saline This seems secondary to ischemic colitis metastatic lesion and portal vein thrombosis Continue hydration with Lovenox Hepatic metastases with worsening LFTs Hepatitis panel negative, no CBD dilation, most likely etiologies liver metastases and portal vein thrombosis Sleep apnea: Sleep apnea report reviewed, will keep him on settings 04/06 as per the report Migraine and back pain, he follows up with pain clinic I will keep him on his opioids for now however close monitoring because of worsening LFTs Goals of care discussed with the patient he is leaning towards comfort measures Regular diet DVT prophylaxis not indicated currently on therapeutic Lovenox 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 45mins Coding Level of Care Code Acute Bus Driver/Monitor for Chg Fwd Diagnoses Lung cancer, primary, with metastasis from lung to other site C34.90 Pulmonary emboli I26.99 Portal vein thrombosis I81 Severe obstructive sleep apnea G47.33 Hypersomnia G47.10 Chronic migraine without aura, intractable, with status migrainosus G43.711 Metastatic cancer C79.9 Colitis K52.9 Acalculous cholecystitis K81.9 Brain metastases C79.31
[2020-08-13 12:37] LABS: Ammonia 40 umol/L (16-60)
[2020-08-13 12:43] LABS: Reflex Lactate Order REFLEX LACTIC ORDERD
[2020-08-13 12:48] LABS: SARS Covid-2 Antigen Negative (Negative)
[2020-08-13] MEDS: sodium chloride 0.9% 1,973.13 ML 1973.1 ML IV (13:20)
[2020-08-13] MEDS: levofloxacin-dextrose 5 % 750 MG/150 ML PREMIX 100 MG IV (13:20)
[2020-08-13 13:24] LABS: Procalcitonin 0.91 ng/mL (0-0.5)
--- NOTE | 2020-08-13 13:48 | CT_ITS ---
WS: [id number] CT HEAD TECHNIQUE: Noncontrast CT of the head obtained from the skullbase to the vertex. CLINICAL INFORMATION: cancer COMPARISON: None. DLP: 950.[address] scans at [facility] use at least one of these dose optimization techniques: automat ed exposure control; mA and/or kV adjustment per patient size (includes targeted exams where dose is matched to clinical indication); or iterative reconstruction. FINDINGS: Intracranial contrast from recent CTA chest and abdomen No evidence of intracranial hemorrhage or mass effect. Ventricular system and basal cisterns are bonilla nt. Mild small vessel changes with mild parenchymal volume loss. Small enhancing lesion with thickeni ng along the pituitary infundibulum is nonspecific but may represent metastatic disease considering C T chest findings. Paranasal sinuses and mastoid air cells are well aerated. .Normal visualized soft tissues. CT/CT head wo con* [id number] IMPRESSION: 1. No evidence of intracranial hemorrhage or mass effect. 2. Small enhancing lesion with thickening along the pituitary infundibulum is nonspecific but may represent metastatic disease considering CT chest findings. This can be followed up with MRI pituitary without and with gadolinium enhance ment on an elective basis. 3. No enhancing intraparenchymal lesions. 4. Mild small vessel changes. Mild parenchymal volume loss.
[2020-08-13] MEDS: iohexol 350 mg/mL 100 mL Btl IV (13:50)
[2020-08-13 14:06] LABS: Lactic Acid level (Lactate) 1.7 mmol/L (0.5-2.2)
[2020-08-13] MEDS: heparin 5,000 unit/mL INJ 1 mL 4000 UNIT IVP (15:41)
[2020-08-13] MEDS: heparin drip 25,000 UNIT/500 ML PREMIX 18 UNIT IV (15:49)
[2020-08-13] MEDS: morphine 4 mg/mL SDV 1 mL IVP (16:12)
[2020-08-13] MEDS: dextrose 5%-sod chloride 0.45% 1,000 ML 30 ML IV (17:55)
[2020-08-13] MEDS: baclofen 10 mg Tablet 20 MG PO (17:56)
[2020-08-13] MEDS: cefTRIAXone 1,000 MG in sodium chloride 0.9% (plus) 50 ML 100 MG IV (17:56)
--- NOTE | 2020-08-13 17:59 | PC.NURSE ---
VISITOR DR. SCHWARZ GAVE THE OKAY FOR PATIENT'S NIECE TO VISIT ANYTIME EVEN AFTER VISITING HOURS.
[2020-08-13] MEDS: zonisamide 100 MG Capsule 400 MG PO (20:17)
[2020-08-13] MEDS: metroNIDAZOLE 500 MG Tablet PO (20:18)
[2020-08-13] MEDS: duloxetine 60 mg Capsule 120 MG PO (20:18)
[2020-08-13] MEDS: morphine 4 mg/mL SDV 1 mL 2 MG IVP (20:18)
[2020-08-13 22:07] LABS: Partial Thromboplastin Time 46.3 SECONDS (23.9-36.7)
[2020-08-14] VITALS (13 sets, daily range): BP systolic 91–105; BP diastolic 59–69; PULSE 65–93; RESP 14–18; TEMP 36.3–36.5; O2SAT 83–99
[2020-08-14] MEDS: morphine 4 mg/mL SDV 1 mL 2 MG IVP ×5 (04:24→21:57)
[2020-08-14 05:36] LABS: Basophils # 0.1 10^3/uL (0.0-0.1); Basophils % 0.9 %; Eosinophils % 0.3 %; Hematocrit 34.3 % (42.0-52.0); Hemoglobin 10.7 g/dL (11.7-16.6); Lymphocytes # 1.5 10^3/uL (0.8-4.8); Lymphocytes % 14.5 %; Mean Corpuscular HGB Conc 31.2 g/dL (30.0-36.0); Mean Corpuscular Hemoglobin 33.4 pg (28.0-34.0); Mean Corpuscular Volume 107.2 fL (80-94); Mean Platelet Volume 11.1 fL (7.4-10.4); Monocytes % 9.3 %; Neutrophils # 7.83 10^3/uL (1.8-7.7); Neutrophils % 74.4 %; Nucleated Red Blood Cells % 0 %; Platelet Count 223 10^3/cmm (130-400); Red Cell Distribution Width 19.9 % (12.1-15.1); White Blood Count 10.5 10^3/uL (4.0-10.0)
[2020-08-14 06:07] LABS: Alanine Aminotransferase 62 U/L (0-41); Albumin Level 2.2 g/dL (3.5-5.2); Alkaline Phosphatase 978 IU/L (40-130); Anion Gap 12.2 (5-19); Aspartate Amino Transferase 186 U/L (0-40); Blood Urea Nitrogen 11 mg/dL (8-23); Calcium 9.8 mg/dL (8.5-10.5); Carbon Dioxide 28 mmol/L (22-29); Chloride 110 mmol/L (98-107); Globulin 2.9 g/dL (1.3-4.6); Glucose 93 mg/dL (65-115); Osmolality Calculated 301 mOsm/kg (285-295); Potassium 4.2 mmol/L (3.5-5.1); Sodium 146 mmol/L (136-145); Total Bilirubin 1.6 mg/dL (0.15-1.2); Total Protein 5.1 g/dL (6.6-8.7)
[2020-08-14] MEDS: enoxaparin 60 mg/0.6 mL Syringe SUBCUT ×2 (06:52→17:28)
[2020-08-14] MEDS: sennosides-docusate Tablet 1 TAB PO ×2 (08:54→17:29)
[2020-08-14] MEDS: sodium chloride 0.9% 1,000 ML 999 ML IV ×2 (08:54→09:56)
[2020-08-14] MEDS: metroNIDAZOLE 500 MG Tablet PO ×3 (08:54→21:20)
[2020-08-14] MEDS: tamsulosin 0.4 mg Capsule PO (08:54)
--- NOTE | 2020-08-14 09:44 | PC.CHAP ---
Pastoral Care Encounter/Spiritual Assessment Type of Contact [] Declined director of finance visit [] Patient/Family/Request visit [] Outpatient visit [] Follow-up visit [] Physician referral [] Code/Alert [x] Routine visit [] Staff referral [] Actively dying [] Patient sleeping [] Family support [] [] Out of room [] Palliative care [] [] Receiving care in room [] Pre-surgical visit [] Trauma [] Long length of stay [] ICU visit [] Other: Relational/Emotional Strength [x] Patient feels connected with others/family/visitors/staff [] Distress [] Loneliness/isolation [] Abandonment Spirituality of Patient [x] Person of Patricia [x] Attends Mandaen of their Patricia [x] Believes in Prayer [] Reads Bible or Cheondoism materials [] There are Spiritual issues to be addressed Hatch Tender Interventions [x] Prayer [x] Active listening [x Non-anxious presence [x] Spiritual/emotional support [] Crisis/trauma care [] Spiritual counseling [] Bereavement support [] Provided bereavement packet [] Provided Bible/devotional materials [] Provided toy/stuffed animal, coloring book to patient or family member [] Provided Communion [] Anointing/Danese [] Salvation [x] Completed spiritual assessment [] Other: Impact on Illness or Injury [] Angry [] Fearful [] Anxious [] Often cries [] Exhaustion [] Unable to work [] Unable to attend jew [] Unable to walk/stand [] Unable to read [] Unable to drive [] Unable to eat/drink [] Unable to sleep [] Unable to be with family [] Patient intubated [] Other: Summary Time spent with patient 15 min
--- NOTE | 2020-08-14 12:34 | P.PN_ITS ---
Subjective Subjective: Interval history: No overnight events He has stayed afebrile, blood pressure is improved, he was able to take liquid diet today Niece at the bedside, we had discussion at length regarding current clinical findings, stage IV cancer with metastases, prognosis, palliative nina mo/radiotherapy options I also consulted Dr. Lacey who will see him after his clinic Patient is getting Lovenox therapeutic dose Noncomplain of any active chest pain fever shortness of breath or abdominal pain Vitals/I&O/Wt Last Vital Signs Temp 97.4 F L 08/14/20 10:42 Pulse 65 08/14/20 10:42 Resp 18 08/14/20 10:42 BP 91/59 08/14/20 10:42 Pulse Ox 96 08/14/20 10:42 08/13/20 08/14/20 08/14/20 22:59 06:59 14:59 Intake Total 3356.73 / 3356.73 2930.5 / 2930.5 Output Total 1725 / 1725 2025 / 3750 825 / 825 Balance 1631.73 / 1631.73 -2025 / -393.27 2105.5 / 2105.5 Weight last 48 hrs Weight 65.771 kg Physical Exam Narrative: EXAM NARRATIVE: Was laying comfortably in his bed was taking a sip of water when I entered the room, niece at the bedside S1, S2 sinus rhythm no murmur clinically dehydrated and macerated malnourished Abdomen soft hepatomegaly however no tenderness on deep palpation bowel sounds hyperactive Low extremities no edema gangrene or ulcer No active signs of cellulitis or gangrene No acute respite distress diminished breath sounds with rhonchi at the bases EOMI, PERRLA No acute neurological deficit Data : 08/14/20 05:09 08/14/20 05:09 Micro: Microbiology 08/13/20 12:14 Blood Culture - Preliminary Blood NEGATIVE TO DATE 08/13/20 10:35 Legionella Urinary Antigen - Final Urine Kidney 08/13/20 10:35 Bacterial Antigens - Final Urine Kidney 08/13/20 11:58 Blood Culture - Preliminary Blood SPECIMEN COLLECTED A&P Assessment and plan (1) Brain metastases: Status: Acute (2) Acalculous cholecystitis: Status: Acute (3) Colitis: Status: Acute (4) Metastatic cancer: Status: Acute (5) Lung cancer, primary, with metastasis from lung to other site: Status: Acute (6) Pulmonary emboli: Status: Acute (7) Portal vein thrombosis: Status: Acute (8) Severe obstructive sleep apnea: Status: Acute Additional A&P Information Stage IV metastatic disease(involving hepatic, pulmonary, brain and bones) Primary cancer seems to be pulmonary however no histopathological diagnosis available and patient is not interested in getting biopsy at this point Considering brain metastases he might be a candidate of palliative radiotherapy for which I have consulted Dr. Lacey Pain well controlled I have kept him on low-dose of opioids secondary to hepatic lesions however creatinine is normal no active signs of drowsiness change in neurological status Hypercoagulable state due to malignancy Portal vein thrombosis and bilateral pulmonary embolism Continue therapeutic dose of Lovenox Hemodynamically stable Colitis with acalculous cholecystitis secondary to malignancy and hepatic lesion Continue antibiotics, he has not shown signs of sepsis Continue IV fluid maintenance rate No active nausea vomiting, hemoglobin 10.7 yesterday 11.7 I do believe this is dilutional Severe sleep apnea: As per the sleep study results he requires BiPAP settings 04/06 Goals of care discussed with the patient and his niece. DNR/DNI Niece would like to discuss with Dr. 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 Lacey today continue antibiotics and therapeutic Lovenox Time Spent in Patient Care: (>than 50% of time spent in counselling and/or d irect pt care on unit) . 35mins Coding Level of Care Code Acute Field Service Supervisor for Chg Fwd Diagnoses Brain metastases C79.31 Acalculous cholecystitis K81.9 Colitis K52.9 Metastatic cancer C79.9 Lung cancer, primary, with metastasis from lung to other site C34.90 Pulmonary emboli I26.99 Portal vein thrombosis I81 Severe obstructive sleep apnea G47.33
--- NOTE | 2020-08-14 15:23 | PC.NURSE ---
Notified Dr Bishop that patient's oxygen is 83% on 5l, blood pressure is 100/66 and breathing is becoming irregular.
--- NOTE | 2020-08-14 15:37 | PC.NURSE ---
Notified Dr Bishop that patient's family want to talk about comfort care.
--- NOTE | 2020-08-14 16:09 | PC.NURSE ---
Rcvd order from Dr Bishop to change iv maintenance fluids to 100ml/hr. Project Structural Engineer put orders in and changed IV pump.
--- NOTE | 2020-08-14 17:12 | PM.CONSULT ---
Providers/Reason For Consult Consulting Physican/Specialty*: Medical Oncology Reason for Consult*: Lung cancer Attending Physician: Jesus Bishop MD Primary Care Provider: Jeffrey Gibbs NP History of Present Illness History of Present Illness Memo Olson is a 59 [address] old man with CT evidence of metastatic lung cancer. He has longstanding, chronic back pain. Since at least May 2020 he has been feeling gradually worse with weakness and anorexia. On 07/21/2020 he was seen in the emergency room with nausea/vomiting and diarrhea. His laboratory studies showed significantly elevated alkaline phosphatase at 511/130 IU/L along with mildly elevated SGOT and SGPT levels. A noncontrast CT abdomen/pelvis showed multiple incompletely characterized hepatic lesions concerning for metastases. Also noted was a left lower lobe pulmonary nodule measuring 0.5 mm. At that time, he was discharged home and scheduled to come in for liver biopsy as an outpatient. On 08/14/2019 when you return to the emergency room with progressive weakness and continued poor oral intake. In the interim he had required placement of indwelling Mora catheter for bladder incontinence. His laboratory studies showed further increase in the alkaline phosphatase to 1190 IUs/L and with mildly elevated total bilirubin at 2.4 mg/dL. Albumin was decreased to 2.5 g/dL. CT angiogram of the chest and abdomen/pelvis showed extensive right lower lobe acute pulmonary embolism with smaller emboli in the segmental and subsegmental pulmonary artery branches bilaterally. Also noted was a spiculated right hilar intraparenchymal mass lesion measuring 2.8 x 2.1 cm consistent with neoplasm in association with masslike right hilar lymphadenopathy measuring 3.1 x 2.8 cm. There was additional masslike subcarinal lymphadenopathy. A few small subcentimeter nodules in the lower lobes bilaterally were suspicious for metastatic disease. Also noted was hepatomegaly and hepatic metastases. There is evidence of SMV/portal vein confluence thrombosis extending into the proximal portal veins in both hepatic lobes. There is evidence for diffuse thickening involving the right colon and hepatic flexure with induration, suspicious for infectious, inflammatory, or ischemic colitis. There were lytic lesions in the thoracic spine, significantly at T6, suspicious for metastatic disease. Head CT showed a small enhancing lesion with thickening along the pituitary infundibulum. The appearance was nonspecific, possibly representing metastatic disease. Follow-up with MRI was recommended. There were no enhancing intraparenchymal lesions noted. He currently is on anticoagulation with Lovenox. His management is otherwise symptomatic. He is extremely weak at this point he is pretty much bedridden. He has very poor oral intake. He does not report difficulty swallowing. He has shortness of breath, and he is on oxygen. He has had cough, but he indicates that it actually has improved over the last few months. He does not have chest pain or hemoptysis. He is not complaining of nausea. He does have some pain in the mid abdominal area and he is now having constipation. He has an indwelling Mora catheter. He continues to have back pain he also reports having pain behind his arms. He has some numbness/tingling in his hands and feet, but that is not new. Review of Systems Const: Reports: change in appetite and fatigue; Denies: fever(s), night sweats or other (no hot flashes) Eyes: Denies: change in vision ENMT: Denies: throat pain, odynophagia, hoarseness, oral sores, change in hearing or tinnitus Card: Denies: chest pain, palpitations or swelling of feet/ankles Resp: Reports: dyspnea and non-productive cough; Denies: wheezing, pain on inspiration or hemoptysis GI: Reports: abdominal pain, nausea, vomiting and constipation; Denies: dysphagia, heartburn, diarrhea, hematochezia or melena : Reports: urinary incontinence Musc: Reports: neck pain, back pain and extremity pain; Denies: joint pain, joint stiffness or muscle cramps Skin/Breast: Denies: rash or new lesions Neuro: Reports: headache(s) and numbness in extremities; Denies: sensory changes or dizziness Psych: Reports: anxiety and depression Kee/Lymph: Denies: easy bruising or easy bleeding Meds/Allergies Home Medications and Allergies Home Medications Medication Instructions Recorded Confirmed Last Taken Type multivitamin 1 tab PO DAILY 06/28/19 08/13/20 08/12/20 History pravastatin 40 mg tablet 40 mg PO DAILY 06/28/19 08/13/20 08/12/20 History tamsulosin 0.4 mg capsule 0.4 mg PO DAILY 06/28/19 08/13/20 08/12/20 History ketoconazole 200 mg tablet 200 mg PO DAILY 1208/13/20 08/03/20 History diazepam 2 mg tablet 2 mg PO DAILY PRN #30 tab 05/13/20 08/13/20 08/02/20 Rx baclofen 20 mg tablet 20 mg PO QID PRN 30 Days #120 tab 07/04/20 08/13/20 08/03/20 Rx hydrocodone 7.5 mg-acetaminophen 1 tab PO .5 times a day PRN 30 07/04/20 08/13/20 08/13/20 Rx 325 mg tablet Days #150 tab Cymbalta 120 mg PO BEDTIME 08/13/20 08/13/20 08/12/20 History Zonegran 400 mg PO BEDTIME 08/13/20 08/13/20 08/12/20 History docusate sodium [Stool Softener] 50 mg PO BID 08/13/20 08/13/20 08/12/20 History Allergies Allergy/AdvReac Type Severity Reaction Status Date / Time Iodine and Iodide Containing Allergy hives Verified 07/04/20 14:31 Produc Current Medications Current Medications Generic Name Dose Route Start Last Admin Trade Name Freq PRN Reason Stop Dose Admin Baclofen 20 mg 08/13/20 16:42 08/13/20 17:56 Baclofen 10 Mg Tablet PO 20 mg QID PRN Administration spasms Duloxetine HCl 120 mg 08/13/20 21:00 08/13/20 20:18 Duloxetine 60 Mg Capsule PO 120 mg BEDTIME RUBEN Administration Enoxaparin Sodium 60 mg 08/13/20 18:00 08/14/20 06:52 Enoxaparin 60 Mg/0.6 Ml Syringe SUBCUT 60 mg Q12H RUBEN Administration Dextrose/Sodium Chloride 1,000 mls @ 100 mls/hr 08/13/20 16:36 08/14/20 08:56 Dextrose 5%-Sod Chloride 0.45% IV 0 mls/hr .Q10H RUBEN Infusion Ceftriaxone Sodium 1,000 mg/ 50 mls @ 100 mls/hr 08/13/20 17:00 08/13/20 18:42 Sodium Chloride IV Infused Q24H RUBEN Infusion Protocol Metronidazole 500 mg 08/13/20 21:00 08/14/20 14:02 Metronidazole 500 Mg Tablet PO 500 mg TID RUBEN Administration Morphine Sulfate 2 mg 08/13/20 16:36 08/14/20 14:02 Morphine 4 Mg/Ml Sdv 1 Ml IVP 2 mg Q4H PRN Administration SEVERE PAIN Senna/Docusate Sodium 1 tab 08/13/20 18:00 08/14/20 08:54 Sennosides-Docusate Tablet PO 1 tab BID RUBEN Administration Tamsulosin HCl 0.4 mg 08/14/20 09:00 08/14/20 08:54 Tamsulosin 0.4 Mg Capsule PO 0.4 mg DAILY RUBEN Administration Zonisamide 400 mg 08/13/20 21:00 08/13/20 20:17 Zonisamide 100 Mg Capsule PO 400 mg BEDTIME RUBEN Administration PFSH Acute PFSH: Medical History (Updated 08/14/20 @ 13:21 by Neetu Jean LPN) Back pain, lumbosacral Bilateral hip pain Bilateral shoulder pain Chronic neck pain Current every day smoker Encounter for long-term opiate analgesic use Major depressive disorder, recurrent severe without psychotic features Opioid contract exists Somatization disorder Surgical History H/O hemorrhoidectomy Family History Other CAD (coronary artery disease) Cancer Dementia Stroke Social History Smoking and tobacco status: heavy tobacco smoker cigarettes Alcohol intake: never History of recent travel: No Vitals/I&O/Wt Last Vital Signs Temp 97.4 F L 08/14/20 15:18 Pulse 86 08/14/20 15:18 Resp 18 08/14/20 15:18 BP 100/66 08/14/20 15:18 Pulse Ox 83 L 08/14/20 15:18 08/14/20 08/14/20 08/14/20 06:59 14:59 22:59 Intake Total 2930.5 / 2930.5 Output Total 2024 825 / 825 Balance -2025 / -393.27 2105.5 / 2105.5 Weight last 48 hrs Weight 65.771 kg Physical Exam Narrative: EXAM NARRATIVE: He appears extremely weak. He is somewhat lethargic but arousable and responsive. HENMT: MOUTH: Normal oral and palatal mucosa present THROAT: posterior oropharynx normal Eye: COMMON NORMALS: conjunctivae normal and no scleral icterus CONJUNCTIVA: Yes conjunctivae normal Lymph: LYMPHATIC: no lymphadenopathy noted (No cervical, clavicular, axillary, or inguinal lymphadenopathy) Resp: OTHER: Lungs sound clear with diminished air movement bilaterally. Cardio: COMMON NORMALS: regular rate, regular rhythm, No gallops present (Cardio), No murmurs present (Cardio) and No rub (Cardio) RATE: regular rate RHYTHM: regular rhythm GI: COMMON NORMALS: Soft to palpation, non-tender, No hepatosplenomegaly present and no masses PALPATION: Yes Soft to palpation and Yes No hepatosplenomegaly present : COMMON NORMALS: Yes no CVA tenderness BLADDER/KIDNEY EXAM: Yes no CVA tenderness Back/Pelvis: COMMON NORMALS: no CVA tenderness and no thoracic nor lumbar tenderness Extremity: NARRATIVE EXTREMITY EXAM: No edema. Pedal pulses are palpable bilaterally. Neuro: COMMON NORMALS: no focal motor deficits and no sensory deficits noted OTHER: He has severe generalized weakness, but no evidence of focal neurologic deficit. Skin: NARRATIVE SKIN EXAM: No evidence of skin eruption. No suspicious skin lesions noted. Data Micro: Micro: Microbiology 08/13/20 12:14 Blood Culture - Pr eliminary Blood NEGATIVE TO KILEY E 08/13/20 10:35 Legionella Urinary Antigen - Final Urine Kidney 08/13/20 10:35 Bacterial Antigens - Final Urine Kidney 08/13/20 11:58 Blood Culture - Pr eliminary Blood SPECIMEN [facility] A&P Assessment and plan (1) Lung cancer, primary, with metastasis from lung to other site: Status: Acute (2) Chronic migraine without aura, intractable, with status migrainosus: Status: Acute (3) Severe obstructive sleep apnea: Status: Acute (4) Portal vein thrombosis: Status: Acute (5) Pulmonary emboli: Status: Acute (6) Colitis: Status: Acute (7) Major depressive disorder, recurrent severe without psychotic features: Status: Acute (8) Back pain, lumbosacral: Status: Chronic Additional A&P Information This patient presents with CT evidence of primary malignancy in the hilar area of the right lung. There is associated right hilar and subcarinal lymph node involvement, and there is CT evidence of metastatic involvement in the liver as well as multiple metastatic sites in the thoracic spine. The small lesion noted on the head CT is of uncertain significance. He also has associated thromboembolism with evidence of multiple pulmonary emboli and portal vein thrombosis. He is on anticoagulation with Lovenox. The CT findings were reviewed with the patient and with his niece. We discussed the fact that he has advanced malignancy, most likely of lung origin. With his performance status this poor, in the case of a non-small cell lung cancer, there would be no expected benefit with chemotherapy, and the recommended treatment would be symptomatic/supportive care with hospice. The case of the small cell cancer, he potentially could still benefit with chemotherapy, though still overall poor prognosis. In this situation there would be no benefit with palliative radiation, as the brain lesion is of uncertain significance and it would certainly not be symptomatic at this stage. If he were to consider treatment, he would require biopsy, either by bronchoscopy or ultrasound directed needle biopsy of the liver, and you have be off Lovenox for least 24 hours prior to the procedure. At present he is undecided, but overall the likelihood of his having treatable disease and having significant benefit with treatment is low, and I think the best option will be symptomatic/supportive care. He does live alone and at this point he will almost certainly require [place] [facility] placement, as he is not capable of caring for himself. 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
[2020-08-14] MEDS: cefTRIAXone 1,000 MG in sodium chloride 0.9% (plus) 50 ML 100 MG IV (17:29)
[2020-08-14] MEDS: dextrose 5%-sod chloride 0.45% 1,000 ML 100 ML IV (17:30)
[2020-08-14] MEDS: duloxetine 60 mg Capsule 120 MG PO (21:20)
[2020-08-14] MEDS: zonisamide 100 MG Capsule 400 MG PO (21:21)
[2020-08-15] VITALS (10 sets, daily range): BP systolic 92–110; BP diastolic 58–72; PULSE 82–90; RESP 13–18; TEMP 36.6–37.2; O2SAT 80–97
[2020-08-15] MEDS: morphine 4 mg/mL SDV 1 mL 2 MG IVP ×5 (02:10→23:55)
[2020-08-15] MEDS: dextrose 5%-sod chloride 0.45% 1,000 ML 100 ML IV ×2 (02:14→13:36)
[2020-08-15 05:20] LABS: Basophils # 0.1 10^3/uL (0.0-0.1); Basophils % 0.7 %; Eosinophils # 0.1 10^3/uL (0.0-0.8); Eosinophils % 0.9 %; Hematocrit 33.9 % (42.0-52.0); Hemoglobin 10.3 g/dL (11.7-16.6); Lymphocytes % 14.9 %; Mean Corpuscular HGB Conc 30.4 g/dL (30.0-36.0); Mean Corpuscular Hemoglobin 33.1 pg (28.0-34.0); Mean Platelet Volume 11.2 fL (7.4-10.4); Monocytes # 1.2 10^3/uL (0.2-0.9); Monocytes % 8.8 %; Neutrophils # 10.15 10^3/uL (1.8-7.7); Neutrophils % 74.2 %; Nucleated Red Blood Cells % 0 %; Platelet Count 218 10^3/cmm (130-400); Red Blood Count 3.11 10^6/uL (4.1-5.3); Red Cell Distribution Width 20.3 % (12.1-15.1); White Blood Count 13.7 10^3/uL (4.0-10.0)
[2020-08-15 05:50] LABS: Alanine Aminotransferase 59 U/L (0-41); Alkaline Phosphatase 910 IU/L (40-130); Anion Gap 10.4 (5-19); Aspartate Amino Transferase 187 U/L (0-40); Blood Urea Nitrogen 10 mg/dL (8-23); Calcium 9.6 mg/dL (8.5-10.5); Carbon Dioxide 29 mmol/L (22-29); Chloride 111 mmol/L (98-107); Globulin 2.9 g/dL (1.3-4.6); Glucose 108 mg/dL (65-115); Osmolality Calculated 302 mOsm/kg (285-295); Potassium 4.4 mmol/L (3.5-5.1); Sodium 146 mmol/L (136-145); Total Bilirubin 1.4 mg/dL (0.15-1.2); Total Protein 4.9 g/dL (6.6-8.7)
[2020-08-15] MEDS: enoxaparin 60 mg/0.6 mL Syringe SUBCUT ×2 (06:30→17:45)
--- NOTE | 2020-08-15 08:09 | PC.NURSE ---
Patient refuses to put oxygen on when eating, Nurse notified
[2020-08-15] MEDS: metroNIDAZOLE 500 MG Tablet PO ×3 (08:55→21:11)
[2020-08-15] MEDS: sennosides-docusate Tablet 1 TAB PO ×2 (08:55→17:45)
[2020-08-15] MEDS: tamsulosin 0.4 mg Capsule PO (08:55)
--- NOTE | 2020-08-15 12:40 | P.PN_ITS ---
Subjective Subjective: Interval history: Patient was seen and examined , niece was present at the bedside as well, Dr. Lacey's recommendations were reviewed with the niece Patient has not eaten well for the last 24 hours, is also experiencing central apneic spells, mentation [place] he is declining, he is still lethargic he could not speak with me today, he complained of chest discomfort last night for which he required morphine Patient has not decided about comfort measures as per my discussion with the niece Vitals/I&O/Wt Last Vital Signs Temp 98.7 F 08/15/20 11:33 Pulse 85 08/15/20 11:33 Resp 17 08/15/20 11:33 BP 110/72 08/15/20 11:33 Pulse Ox 96 08/15/20 11:33 08/14/20 08/15/20 08/15/20 22:59 06:59 14:59 Intake Total 1030 / 3960.5 1000 / 4960.5 120 / 120 Output Total 1000 / 1825 1400 / 3225 Balance 30 / 2135.5 -400 / 1735.5 120 / 120 Physical Exam Narrative: EXAM NARRATIVE: Middle-age male Who is in multiple layers when I evaluated him Very lethargic and drowsy as compared to yesterday Is not able to communicate today I am also noticing central apneic spells His breathing is more labored Looks dehydrated Concentrated urine and urine bag At the time my evaluation no active chest discomfort Extremely dry, cachectic, malnourished Data : 08/15/20 04:55 08/15/20 04:55 Micro: Microbiology 08/13/20 11:58 Blood Culture - Preliminary Blood NEGATIVE TO DATE 08/13/20 12:14 Blood Culture - Preliminary Blood NEGATIVE TO DATE A&P Assessment and plan (1) Lung cancer, primary, with metastasis from lung to other site: Status: Acute (2) Colitis: Status: Acute (3) Acalculous cholecystitis: Status: Acute (4) Brain metastases: Status: Acute (5) Metastatic cancer: Status: Acute (6) Pulmonary emboli: Status: Acute (7) Portal vein thrombosis: Status: Acute (8) Severe obstructive sleep apnea: Status: Acute Additional A&P Information Stage IV metastatic cancer Dr. Lacey's recommendations reviewed and appreciated Patient mentation is declining He has not eaten in the last 24 hours Experiencing central apneic spells as well Systolic blood pressure is soft He is DNR/DNI, niece discussed his clinical findings and prognosis with Dr. Lacey, I do believe he is a poor candidate for palliative chemo radiotherapy at this point and would benefit from SNF placement with comfort measures provided he lives alone and nieces from [place] Colitis and acalculus cholecystitis, I would continue antibiotics for now along maintenance fluid Pulmonary embolism along portal vein thrombosis Secondary to hypercoagulable state of cancer continue Lovenox therapeutic regimen DNR/DNI Regular diet DVT prophylaxis not indicated currently on therapeutic Lovenox Poor prognosis Attestations Medical Necessity Statement*: Poor prognosis, will discuss with the family if they would agree with SNF with comfort measures Time Spent in Patient Care: 20mins Coding Level of Care Code 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
--- NOTE | 2020-08-15 14:27 | PC.NURSE ---
Dr brown has approved for patient family to visit and stay with patient due patient current condition brother Harjinder cobb will be here around 1930 this night security and warehouse examiner notified
[2020-08-15] MEDS: cefTRIAXone 1,000 MG in sodium chloride 0.9% (plus) 50 ML 100 MG IV (17:45)
[2020-08-15] MEDS: duloxetine 60 mg Capsule 120 MG PO (21:11)
[2020-08-15] MEDS: zonisamide 100 MG Capsule 400 MG PO (21:11)
[2020-08-16] VITALS (8 sets, daily range): BP systolic 99–116; BP diastolic 68–77; PULSE 82–97; RESP 16–18; TEMP 36.6–37.3; O2SAT 84–95
[2020-08-16] MEDS: dextrose 5%-sod chloride 0.45% 1,000 ML 100 ML IV ×2 (00:25→11:09)
[2020-08-16] MEDS: morphine 4 mg/mL SDV 1 mL 2 MG IVP ×3 (04:04→14:37)
--- NOTE | 2020-08-16 04:10 | PC.NURSE ---
Patient is increasingly apnic when asleep, respirations are 10 -11 per minute when asleep and 16 when awake. He is never pain free, Morphine pulls pain down to about 3 most times. His back is where he feels the most pain.
[2020-08-16] MEDS: enoxaparin 60 mg/0.6 mL Syringe SUBCUT (05:31)
--- NOTE | 2020-08-16 07:20 | PC.NURSE ---
I asked the patient if he would like his oxygen put on and he stated He wasn't sure. I told the patient that i would lay his oxygen across his stomach just in case he decided he wanted to put it on.
[2020-08-16] MEDS: sennosides-docusate Tablet 1 TAB PO (08:47)
[2020-08-16] MEDS: tamsulosin 0.4 mg Capsule PO (08:47)
[2020-08-16] MEDS: metroNIDAZOLE 500 MG Tablet PO (08:47)
--- NOTE | 2020-08-16 10:19 | PC.NURSE ---
Spoke to Alexandra beaver. She said it is okay for us to give information to [place], but he is not to make any decisions on behalf of the patient.
--- NOTE | 2020-08-16 11:30 | PM.PN ---
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 intake, his urine output is also greater than 3 L, patient is endorsing dehydration, anorexia, he wanted to smoke today and was craving nicotine Vitals/I&O/Wt Last Vital Signs Temp 99.2 F 08/16/20 11:07 Pulse 97 08/16/20 11:07 Resp 18 08/16/20 11:07 BP 114/77 08/16/20 11:07 Pulse Ox 95 08/16/20 11:07 08/15/20 08/16/20 08/16/20 22:59 06:59 14:59 Intake Total 1348.333 / 2948.333 581.667 / 3530.000 1400 / 1400 Output Total 3050 / 4815 150 / 150 Balance 1348.333 / 1183.333 -2468.333 / -7805.555 1487 / 1250 Physical Exam Narrative: EXAM NARRATIVE: He was sitting upright today much more awake and alert as compared to yesterday Was asking for nicotine patch No active chest pain or worsening respiratory distress He has soft mild tenderness in right upper quadrant area present since admission Lower extremity no edema gangrene or ulcer Mora catheter draining clear urine Awake and alert oriented x3, GCS 15, EOMI, PERRLA Clinically looks very dehydrated emaciated malnourished No active neurological deficit Muscle wasting/sarcopenia + Data : 08/15/20 04:55 08/15/20 04:55 A&P Assessment and plan (1) Lung cancer, primary, with metastasis from lung to other site: Status: Acute (2) Metastatic cancer: Status: Acute (3) Colitis: Status: Acute (4) Acalculous cholecystitis: Status: Acute (5) Brain metastases: Status: Acute (6) Severe obstructive sleep apnea: Status: Acute (7) Portal vein thrombosis: Status: Acute (8) Pulmonary emboli: Status: Acute Additional A&P Information Stage IV metastatic cancer Primary cancer most likely seems to be pulmonary malignancy with metastases Metastases to bone, brain, liver, Dr. Lacey recommendations appreciated Had discussion with Dr. 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 Opiates for analgesia, bowel regimen He does not want to pursue histopathological diagnosis or palliative radiotherapy Acalculous cholecystitis with portal vein thrombosis and hepatic metastases Has stayed afebrile, DC antibiotics We will initiate comfort measures Colitis I will keep him on normal saline for fluid resuscitation however will discontinue antibiotics today This seems to be secondary to portal vein thrombosis with possible ischemia Portal vein thrombosis and bilateral PE Has been getting therapeutic dose of Lovenox, and continue Lovenox for now because of malignancy induced hypercoagulable state, Regular diet DNR/DNI, willing to pursue comfort measures, will talk with his brother today DVT prophylaxis not indicated currently on therapeutic Lovenox Guarded prognosis Attestations Medical Necessity Statement*: Placement to SNF with comfort measures Time Spent in Patient Care: 30mins Coding Level of Care 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
--- NOTE | 2020-08-16 14:08 | PC.SOCIAL ---
IMM update: Pg 2 IMM update given to patient. Patient verbalized an understanding, initialed, dated, and copy placed in chart.
--- NOTE | 2020-08-16 15:16 | P.DS_ITS ---
Discharge Providers Date of Admission: 08/13/20 14:53 Date of Discharge: August 16, 2020 Attending Provider at Admission: Jesus Bishop MD Attending Provider at Discharge: Jesus Bishop MD Primary Care Provider: Jeffrey Gibbs NP Diagnoses at Discharge Discharge Diagnosis (1) Lung cancer, primary, with metastasis from lung to other site: Status: Acute (2) Metastatic cancer: Status: Acute (3) Colitis: Status: Acute (4) Acalculous cholecystitis: Status: Acute (5) Brain metastases: Status: Acute (6) Severe obstructive sleep apnea: Status: Acute (7) Portal vein thrombosis: Status: Acute (8) Pulmonary emboli: Status: Acute Reason for Visit Reason for Visit: WEAKNESS, CANCER Hospital Course Hospital Course 59-year-old gentleman who presented to the hospital because of generalized malaise and fatigue. He lives alone and was diagnosed with hepatic lesions few weeks back in the ER, he was scheduled for CT-guided biopsy of hepatic lesions but in the interim got weaker and decided to come to the ED for further evaluation in the emergency department, CT chest abdomen pelvis along CT head was requested which revealed multiple metastatic lesions, involving bone, brain, liver, primary cancer seemed to be lung cancer considering history of smoking. He was admitted and was started on therapeutic dose of Lovenox because of bilateral PEs, portal vein thrombosis. For colitis and acalculus cholecystitis he was kept on ceftriaxone and metronidazole he never became septic, CT head revealed metastatic lesion around pituitary infundibular region however he did not show any neurological signs or symptoms. Dr. Lacey was consulted for further recommendations. He discussed all the findings and prognosis with the patient and his niece Alexandra phone number [phone]. He recommended palliative chemo and radiotherapy options however because of declining functional status and social dynamics agreed with hospice/comfort care. Patient lives alone, niece lives in [place] and brother is also not living with him. He stayed in the hospital received IV fluids and antibiotics, his p.o. intake has been extremely poor, he has been getting morphine and opioids for pain. On 08/16 he decided to go to SNF with comfort measures. Family agreed. [facility] measures. At the snf they cannot do IV pushes therefore I will give him Roxanol to be taken in liquid form along with Ativan, atropine and Tylenol. Physical Exam Narrative: EXAM NARRATIVE: Extremely weak lethargic cachectic appearing male Looks extremely dehydrated S1, S2 no murmur appreciated Abdomen soft nontender bowel sounds present mild tenderness to deep palpation on right upper quadrant area Low symmetry no edema gangrene ulcer Mora cath draining concentrated urine EOMI, PERRLA Patient is drowsy however verbally redirectable Discharge Data Data Completed and Pending: Completed Studies During Hospitalization Category Date Time Status CT angio chest w abd pel w con Stat Cat Scan 08/13/20 12:[address] head wo con* 7 0450 Routine Cat Scan 08/13/20 13:48 Completed XR chest 1V ursula ble 76846 Stat Exams 08/13/20 10:34 Completed US gall bladder 7 6705 Stat Ultrasound 08/13/20 12:35 Completed Pending at discharge Category Date Time Status Blood Culture Sta t Lab 08/13/20 11:58 Results Sputum Culture an d Gram Stain Stat Lab 08/13/20 11:55 Uncollected Vitals: Last Vital Signs Temp 98.5 F 08/16/20 15:08 Pulse 91 08/16/20 15:08 Resp 18 08/16/20 15:08 BP 109/74 08/16/20 15:08 Pulse Ox 95 08/16/20 15:08 Discharge Plan Discharge Patient Disposition: Home Condition: Stable Prescriptions: New sennosides-docusate sodium [Stool Softener-Laxative] 8.6-50 mg Tablet 1 tab PO BID 30 Days Qty: 60 RF: 0 nicotine 7 mg/24 hr Patch 24 Hour 1 patch transdermal DAILY 30 Days Qty: 30 RF: 0 morphine 20 mg/5 mL (4 mg/mL) solution 5 mg PO Q4H PRN (Reason: pain) Qty: 100 RF: 0 Xanax 1 mg tablet 1 mg PO TID PRN (Reason: anxiety) Qty: 60 RF: 0 scopolamine base 1 mg over 3 days patch 3 day 1 patch transdermal Q3D PRN (Reason: nausea and vomiting) Qty: 4 RF: 0 acetaminophen [Tylenol] 325 mg tablet 325 mg PO Q4H PRN (Reason: fever) Qty: 30 RF: 0 duloxetine 60 mg Capsule,Delayed Release(Dr/Ec) 120 mg PO BEDTIME 30 Days RF: 0 Continued baclofen 20 mg tablet 20 mg PO QID PRN (Reason: spasms) 30 Days Qty: 120 RF: 1 Discontinued ketoconazole 200 mg tablet 200 mg PO DAILY RF: 0 diazepam [Valium] 2 mg tablet 2 mg PO DAILY PRN (Reason: anxiety) Qty: 30 RF: 2 multivitamin [Daily Multi-Vitamin] Tablet 1 tab PO DAILY RF: 0 pravastatin 40 mg tablet 40 mg PO DAILY RF: 0 tamsulosin [Flomax] 0.4 mg capsule 0.4 mg PO DAILY RF: 0 hydrocodone-acetaminophen 7.5-325 mg tablet 1 tab PO .5 times a day PRN (Reason: pain) 30 Days Qty: 150 RF: 0 zonisamide [Zonegran] 100 mg capsule 400 mg PO BEDTIME RF: 0 duloxetine [Cymbalta] 60 mg capsule,delayed release(DR/EC) 120 mg PO BEDTIME RF: 0 Stool Softener 50 mg Capsule 50 mg PO BID RF: 0 Discharge Orders: Discharge Order (Routine); Ordered 08/16/20 Ordered By: Jesus Bishop Referrals: Jeffrey Gibbs NP [Primary Care Provider] - Discharge Attestations Time Spent in Discharge Care*: less than 30 min Quality Metrics Clinical Quality Measures During this hospital stay, did patient experience: None Coding Level of Care Code Acute Chg FW DC note Diagnoses Lung cancer, primary, with metastasis from lung to other site C34.90 Metastatic cancer C79.9 Colitis K52.9 Acalculous cholecystitis K81.9 Brain metastases C79.31 Severe obstructive sleep apnea G47.33 Portal vein thrombosis I81 Pulmonary emboli I26.99
--- NOTE | 2020-08-16 16:41 | PC.NURSE ---
Report called to Norm Sanders.
== END 2020-08-16 17:15 | disposition hospice, inpatient (51) | DRG 180 ==
LOC: ER 14:48 → MEDSURG 15:09
PROVIDERS: Admitting Provider Internal Medicine; Emergency Provider Family Medicine; PCP Nurse Practitioner Family; Visit Provider Internal Medicine
DX: C34.01 Malignant neoplasm of right main bronchus (principal); I81 Portal vein thrombosis; I26.99 Other pulmonary embolism without acute cor pulmonale; C78.7 Secondary malignant neoplasm of liver and intrahepatic bile duct; C77.1 Secondary and unspecified malignant neoplasm of intrathoracic lymph nodes; C79.51 Secondary malignant neoplasm of bone; C79.31 Secondary malignant neoplasm of brain; F33.9 Major depressive disorder, recurrent, unspecified; F17.210 Nicotine dependence, cigarettes, uncomplicated; K52.9 Noninfective gastroenteritis and colitis, unspecified; K81.9 Cholecystitis, unspecified; G47.33 Obstructive sleep apnea (adult) (pediatric); G47.10 Hypersomnia, unspecified; G43.711 Chronic migraine without aura, intractable, with status migrainosus; G89.3 Neoplasm related pain (acute) (chronic); Z96.0 Presence of urogenital implants; R32 Unspecified urinary incontinence; K59.00 Constipation, unspecified; Z66 Do not resuscitate
CPT/HCPCS: 36415; 70450; 71045; 71275; 74177; 76705; 80053; 81003; 82140; 82550; 83605; 83690; 83735; 84145; 85025; 85730; 86403; 87040; 87426; 87449; 93005; 96365; 96366; 96367; 96372; 96375; 99285; J0696; J1644; J1650; J1956; J2270; J2405; J7030; J7799; Q9967